=== PATIENT | female | born 1965 | race Caucasian/White ===

== ENCOUNTER 2017-07-05 13:16 | Inpatient (IN) | payer OTHER ==
[2017-07-05 17:11] VITALS: BMI 20.9
--- NOTE | 2017-07-05 18:46 | HP ---
COWS - Scale Resting Pulse: 0= [place] 80 or Below Sweatin= Chills/Flushing Restless Observation: 3= Extraneous Movement Pupil Size: 0= Normal to Room Light Bone or Joint Aches: 2= Severe Diffuse Aches Runny Nose/ Eye Tearin= Runny Nose/Eyes GI Upset > 30mins: 2= Nausea/Diarrhea Tremor Observation: 2= Slight Tremor Visible Yawning Observation: 1= 1-2x During Session Anxiety or Irritability: 2=Irritable/Anxious Goose Flesh Skin: 0=Smooth Skin COWS Score: 15 CIWA Score - CIWA Score Nausea/Vomitin-Mild Nausea/No Vomiting Muscle Tremors: 4-Moderate,w/Arms Extend Anxiety: 4-Mod. Anxious/Guarded Agitation: 4-Moderately Restless Paroxysmal Sweats: 1-Minimal Palms Moist Orientation: 0-Oriented Tacttile Disturbances: 1-Very Mild Itch/Numbness Auditory Disturbances: 0-None Visual Disturbances: 0-None Headache: 1-Very Mild CIWA-Ar Total Score: 16 Admission [facility] - HPI Chief Complaint: withdrawal sx Allergies/Adverse Reactions: Allergies Allergy/AdvReac Type Severity Reaction Status Date / Time No Known Allergies Allergy Verified 07/05/17 17:19 History of Present Illness: 51 years old female with long history of alcohol heroin nicotine dependence has copd asthma hiv ambulate with cane neuropathy both legs has bipolar ii is admitted to detox Exam Limitations: No Limitations - Ebola screening Have you traveled outside of the country in the last 21 days: No Have you had contact with anyone from an Ebola affected area: No Have you been sick,other than usual withdrawal symptoms: No Do you have a fever: No - Review of Systems Constitutional: Loss of Appetite, Changes in sleep, Unintentional Wgt. Loss, Unexplained wgt Loss EENT: reports: Hearing Loss (right ear x 3 years) Respiratory: reports: No Symptoms reported Cardiac: reports: No Symptoms Reported GI: reports: Diarrhea, Nausea, Poor Appetite, Poor Fluid Intake, Vomiting, Abdominal cramping : reports: No Symptoms Reported Musculoskeletal: reports: Back Pain, Joint Pain, Muscle Pain, Neck Pain Integumentary: reports: Change in Color (both arms iv heroin) Neuro: reports: Tremors Endocrine: reports: No Symptoms Reported Hematology: reports: No Symptoms Reported Psychiatric: reports: Judgement Intact, Orientated x3, Anxious, Depressed Other Systems: Reviewed and Negative Patient History - Patient Medical History Hx Anemia: No Hx Asthma: Yes Hx Chronic Obstructive Pulmonary Disease (COPD): Yes Hx Cancer: No Hx Cardiac Disorders: No Hx Congestive Heart Failure: No Hx Hypertension: No Hx Hypercholesterolemia: No Hx Pacemaker: No HX Cerebrovascular Accident: No Hx Seizures: No Hx Dementia: No Hx Diabetes: No Hx Gastrointestinal Disorders: No Hx Liver Disease: No Hx Genitourinary Disorders: No Hx Sexually Transmitted Disorders: No Hx Renal Disease (ESRD): No Hx Thyroid Disease: No Hx Human Immunodeficiency Virus (HIV): Yes (1999) Hx Hepatitis C: No Hx Depression: No Hx Suicide Attempt: No Hx Bipolar Disorder: Yes Hx Schizophrenia: No - Patient Surgical History Past Surgical History: Yes Hx Neurologic Surgery: No Hx Cataract Extraction: No Hx Cardiac Surgery: No Hx Lung Surgery: No Hx Breast Surgery: No Hx Breast Biopsy: No Hx Abdominal Surgery: No Hx Appendectomy: No Hx Cholecystectomy: No Hx Genitourinary Surgery: No Hx Section: Yes (x 2 ) Hx Orthopedic Surgery: No Anesthesia Reaction: No - PPD History Previous Implant?: Yes Documented Results: Negative w/o proof Implanted On Prior R Admission?: No PPD to be Administered?: Yes - Reproductive History Patient is a Female of Child Bearing Age (11 -55 yrs old): Yes Last Menstrual Period: 05/20/16 Patient : No - Smoking Cessation Smoking history: Current every day smoker Have you smoked in the past 12 months: Yes Aproximately how many cigarettes per day: 20 Cigars Per Day: 0 Hx Chewing Tobacco Use: No Initiated information on smoking cessation: Yes 'Breaking Loose' booklet given: 07/05/17 - Substance & Tx. History Hx Alcohol Use: Yes Hx Substance Use: Yes Substance Use Type: Alcohol, Cocaine, Opiates Hx Substance Use Treatment: Yes (2015) - Substances Abused Alcohol Route: Oral Frequency: Daily Amount used: liquor- 1 pint, beer- 2 six packs 16 oz Age of first use: 16 Date of Last Use: 07/05/17 Heroin Route: Injection Frequency: Daily Amount used: 10 bags Age of first use: 16 Date of Last Use: 07/05/17 Family Disease History - Family Disease History Family Disease History: Diabetes: Brother, Heart Disease: Brother, CA: Mother ( /brain), Other: Mother, Sister (no sister) Admission Physical Exam [facility] - Vital Signs Vital Signs: Vital Signs - 24 hr 07/05/17 17:04 Temperature 96.6 F L Pulse Rate 69 Respiratory 20 Rate Blood Pressure 125/80 - Physical General Appearance: Yes: Appropriately Dressed, Mild Distress, Thin, Tremorous, Irritable, Sweating, Anxious HEENTM: Yes: Hearing grossly Normal, Normal ENT Inspection, Normocephalic, Normal Voice Respiratory: Yes: Chest Non-Tender, No Respiratory Distress, No Accessory Muscle Use, Wheezing Neck: Yes: Supple, Trachea in good position Breast: Yes: Breasts Symetrical Cardiology: Yes: Regular Rhythm, Regular Rate, S1, S2 Abdominal: Yes: Non Tender, Soft, Increased Bowel Sounds Genitourinary: Yes: Within Normal Limits Back: Yes: Normal Inspection Musculoskeletal: Yes: full range of Motion, Gait Steady, Back pain, Muscle weakness (both legs) Extremities: Yes: Normal Range of Motion, Non-Tender, Tremors Neurological: Yes: Fully Oriented, Alert, Normal Response, Depressed Affect Integumentary: Yes: Warm, Track [place] Lymphatic: Yes: Within Normal Limits - Diagnostic (1) Alcohol dependence with uncomplicated withdrawal Current Visit: Yes Status: Acute (2) Opioid dependence with withdrawal Current Visit: Yes Status: Acute (3) Asthma Current Visit: Yes Status: Chronic Qualifiers: Asthma severity: mild Asthma persistence: intermittent Asthma complication type: with status asthmaticus Qualified Code(s): J45.22 - Mild intermittent asthma with status asthmaticus (4) COPD (chronic obstructive pulmonary disease) Current Visit: Yes Status: Chronic Qualifiers: COPD type: emphysema Emphysema type: unspecified Qualified Code(s): J43.9 - Emphysema, unspecified (5) Nicotine dependence Current Visit: Yes Status: Acute Qualifiers: Nicotine product type: cigarettes Substance use status: in withdrawal Qualified Code(s): F17.213 - Nicotine dependence, cigarettes, with withdrawal (6) HIV (human immunodeficiency virus infection) Current Visit: Yes Status: Chronic Comment: no medication upon admission (7) Neuropathic arthritis Current Visit: Yes Status: Chronic (8) Use of cane as ambulatory aid Current Visit: Yes Status: Chronic (9) Weight loss Current Visit: Yes Status: Acute (10) Bipolar II disorder Current Visit: Yes Status: Suspected Cleared for Admission [facility] - Detox or Rehab [facility] Level of Care: Medically Managed Detox Regimen/Protocol: Methadone/Librium [facility] Breath Alcohol Content Breath Alcohol Content: 0 Urine Pregancy Test - Result Urine Test Results: Negative- NO Line Present Urine Drug Screen - Results Drug Screen Negative: No Urine Drug Screen Results: GUEVARA-Cocaine, OPI-Opiates, MTD-Methadone, TCA- Tricyclic Antidepress
[2017-07-05] MEDS ORDERED: LOPERAMIDE HCL 2 MG CAPSULE PO PRN (18:48)
[2017-07-05] MEDS ORDERED: NICOTINE POLACRILEX 4 MG GUM BUC PRN (18:48)
[2017-07-05] MEDS ORDERED: METHADONE HCL 10 MG TABLET (FOR DETOX USE ONLY) PO ONE ×2 (18:48→23:00)
[2017-07-05] MEDS ORDERED: MAGNESIUM HYDROX 2400MG/30ML ORAL SUSPENSION 30 ML CUP PO PRN (18:48)
[2017-07-05] MEDS ORDERED: ACETAMINOPHEN 325 MG TABLET (FP) PO PRN (18:48)
[2017-07-05] MEDS ORDERED: IBUPROFEN 400 MG TABLET (FP) PO PRN (18:48)
[2017-07-05] MEDS ORDERED: P-EPHED 60MG/TRIPROLIDI 2.5MG TABLET PO PRN (18:48)
[2017-07-05] MEDS ORDERED: MAG HYDROX/AL HYDROX/SIMETH 30 ML UNIT-DOSE CUP PO PRN (18:48)
[2017-07-05] MEDS ORDERED: guaiFENesin/D-METHORPHAN HB 10 ML UNIT-DOSE CUPS PO PRN (18:48)
[2017-07-05] MEDS ORDERED: MAGNESIUM CITRATE 300 ML BOTTLE PO PRN (18:48)
[2017-07-05] MEDS ORDERED: MENTHOL/PHENOL 1 EACH UD MM PRN (18:48)
[2017-07-05] MEDS ORDERED: ALBUTEROL SO4 18 GM HFA INHALER IH PRN (18:50)
[2017-07-05] MEDS ORDERED: METHOCARBAMOL 500 MG TABLET PO PRN (18:50)
[2017-07-05] MEDS ORDERED: BACITRACIN 0.9 GM PACKET TP ONE (18:53)
[2017-07-05] MEDS ORDERED: METHADONE HCL 10 MG TABLET (FOR DETOX USE ONLY) ONE (21:08)
[2017-07-05] MEDS: GABAPENTIN 300 MG CAPSULE (FP) PO SCH (21:12)
[2017-07-05] MEDS: chlordiazePOXIDE HCL 25 MG CAPSULE PO PRN (21:12)
[2017-07-05] MEDS: THIAMINE HCL 100 MG TABLET (FP) PO SCH (21:16)
[2017-07-05] MEDS: chlordiazePOXIDE HCL 25 MG CAPSULE PO SCH (22:46)
[2017-07-05] MEDS ORDERED: BACITRACIN 0.9 GM PACKET ONE (22:51)
[2017-07-05 23:29] LABS: URINE APPEARANCE CLEAR; URINE BILIRUBIN NEGATIVE (NEGATIVE); URINE BLOOD 2+ (NEGATIVE); URINE COLOR YELLOW; URINE GLUCOSE (UA) NEGATIVE (NEGATIVE); URINE KETONE NEGATIVE (NEGATIVE); URINE LEUK ESTERASE NEGATIVE (NEGATIVE); URINE NITRITE NEGATIVE (NEGATIVE); URINE PROTEIN NEGATIVE (NEGATIVE); URINE UROBILINOGEN NEGATIVE mg/dL (0.2-1.0)
[2017-07-05 23:41] LABS: EPI CELLS FEW /HPF (FEW); URINE MUCUS RARE
[2017-07-06] MEDS: chlordiazePOXIDE HCL 25 MG CAPSULE PO PRN ×2 (01:33→10:59)
[2017-07-06] MEDS: GABAPENTIN 300 MG CAPSULE (FP) PO SCH ×3 (05:44→22:54)
[2017-07-06] MEDS: chlordiazePOXIDE HCL 25 MG CAPSULE PO SCH ×4 (05:44→23:44)
[2017-07-06] MEDS ORDERED: METHADONE HCL 10 MG TABLET (FOR DETOX USE ONLY) PO SCH (10:00)
[2017-07-06] MEDS ORDERED: ATAZANAVIR SO4 300 MG CAPSULE PO SCH (10:00)
[2017-07-06 10:15] LABS: HEMATOCRIT 33.8 % (32.4-45.2); HEMOGLOBIN 11.1 GM/dL (10.7-15.3); MCH 32.4 pg (25.7-33.7); MCHC 32.8 g/dl (32.0-36.0); MEAN CELL VOLUME 98.7 fl (80-96); MEAN PLT VOLUME 8.5 fl (7.5-11.1); PLATELET COUNT 226 K/MM3 (134-434); RBC 3.42 M/mm3 (3.60-5.2); RDW 13.2 % (11.6-15.6); WHITE BLOOD COUNT 3.4 K/mm3 (4.0-10.0)
[2017-07-06 10:32] LABS: ALBUMIN 2.4 g/dl (3.4-5.0); ALK PHOS 286 U/L (45-117); ANION GAP 5 (8-16); BILIRUBIN,TOTAL 0.2 mg/dL (0.2-1.0); BLOOD UREA NITROGEN 12 mg/dL (7-18); CALCIUM 8.3 mg/dL (8.5-10.1); CHLORIDE 103 mmol/L (98-107); CO2 29 mmol/L (21-32); CREATININE 0.8 mg/dL (0.55-1.02); GLUCOSE,RANDOM 83 mg/dL (74-106); POTASSIUM 4.1 mmol/L (3.5-5.1); SGOT/AST 30 U/L (15-37); SGPT/ALT 29 U/L (12-78); SODIUM 137 mmol/L (136-145); TOT PROT 8.8 g/dl (6.4-8.2)
--- NOTE | 2017-07-06 10:45 | EKG ---
Test Reason : Blood Pressure : / mmHG Vent. Rate : 057 BPM Atrial Rate : 057 BPM P-R Int : 136 ms QRS Dur : 090 ms QT Int : 460 ms P-R-T Axes : 073 083 073 degrees QTc Int : 447 ms SINUS BRADYCARDIA OTHERWISE NORMAL ECG NO PREVIOUS ECGS AVAILABLE Confirmed by MEGAN CONROY, JEREMY ([id number]) on 07/06/2017 10:44:57 AM Referred By: Confirmed By:JEREMY GUZMAN MD
[2017-07-06] MEDS: PRENATAL VITAMINS W/ FOLIC ACID TABLET (FP) PO SCH (10:56)
[2017-07-06] MEDS: NICOTINE 21 MG/24 HOURS TOPICAL PATCH TD SCH (10:57)
--- NOTE | 2017-07-06 11:51 | PN ---
S CIWA - CIWA Score Nausea/Vomitin Muscle Tremors: 3 Anxiety: 2 Agitation: 2 Paroxysmal Sweats: 3 Orientation: 0-Oriented Tacttile Disturbances: 2-Mild Itch/Numbness/Burn Auditory Disturbances: 0-None Visual Disturbances: 0-None Headache: 0-None Present CIWA-Ar Total Score: 15 [facility] COWS - Scale Resting Pulse: 1= [place] 81-100 Sweatin=Flushed/Facial Moisture Restless Observation: 1= Difficult to Sit Still Pupil Size: 1= Pupils >than Normal Bone or Joint Aches: 2= Severe Diffuse Aches Runny Nose/ Eye Tearin= Nasal Congestion GI Upset > 30mins: 2= Nausea/Diarrhea Tremor Observation of Outstretched Hands: 2= Slight Tremor Visible Yawning Observation: 0= None Anxiety or Irritability: 1=Feels Anxious/Irritable Goose Flesh Skin: 0=Smooth Skin COWS Score: 13 [facility] Progress Note (SOAP) Subjective: interrupted sleep, sweats, shakes , nausea, body aches and cramps. Objective: 07/06/17 11:41 Vital Signs Temperature 97.5 F L 07/06/17 04:00 Pulse Rate 61 07/06/17 04:00 Respiratory Rate 18 07/06/17 04:00 Blood Pressure 108/66 07/06/17 04:00 O2 Sat by Pulse Oximetry (%) Laboratory Tests 07/05/17 07/06/17 07/06/17 19:42 07:00 07:00 WBC 3.4 L RBC 3.42 L Hgb 11.1 Hct 33.8 MCV 98.7 H MCH 32.4 MCHC 32.8 RDW 13.2 Plt Count 226 MPV 8.5 Sodium 137 Potassium 4.1 Chloride 103 Carbon Dioxide 29 Anion Gap 5 L BUN 12 Creatinine 0.8 Creat Clearance w eGFR > 60 Random Glucose 83 Calcium 8.3 L Total Bilirubin 0.2 AST 30 ALT 29 Alkaline Phosphatase 286 H Total Protein 8.8 H Albumin 2.4 L Urine Color Yellow Urine Appearance Clear Urine pH 5.0 Ur Specific [place] 1.017 Urine Protein Negative Urine Glucose (UA) Negative Urine Ketones Negative Urine Blood 2+ H Urine Nitrite Negative Urine Bilirubin Negative Urine Urobilinogen Negative Ur Leukocyte Esterase Negative Urine WBC (Auto) 2 Urine RBC (Auto) 20 Ur Epithelial Cells Few Urine Mucus Rare pt aox3 in nad ambulating Assessment: 07/06/17 11:42 withdrawal sx's hiv mild anemia ? hematuria Plan: cont. detox increase fluids flexeril tid motrin prn
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
[2017-07-06] MEDS: CYCLOBENZAPRINE HCL 5 MG TABLET PO SCH ×2 (14:12→22:54)
[2017-07-06] MEDS ORDERED: ONDANSETRON *ODT* 4 MG TABLET SL ONE (19:03)
--- NOTE | 2017-07-06 20:47 | PN ---
[facility] Progress Note Note: received nurse call that the patient is vomiting and has abdominal pain observed patient sitting on her bed alert oriented x 3 speech clearly "I want a shot for the pain" reports has normal bowel movement early today, had breakfast and lunch and dinner, vomited x 1 undigested food, zofrain sl 4 mg x 1, progress to projectile vomiting diffused abdominal pain, diaphoretic, unable to tolerate fluid bp 141/98 ambulance was called information provided to ER
[2017-07-06] MEDS ORDERED: traZODone HCL 50 MG TABLET (FP) PO SCH (22:00)
[2017-07-06 22:39] VITALS: BP 153/108; PULSE 73; TEMP 98.2
[2017-07-06] MEDS: THIAMINE HCL 100 MG TABLET (FP) PO SCH (22:54)
[2017-07-06] MEDS: RANITIDINE HCL 150 MG TABLET (FP) PO SCH (23:58)
[2017-07-07] MEDS ORDERED: METHADONE HCL 5 MG TABLET (FOR DETOX USE ONLY) PO SCH (10:00)
[2017-07-07] MEDS: RANITIDINE HCL 150 MG TABLET (FP) PO SCH (13:20)
[2017-07-07] MEDS: NICOTINE 21 MG/24 HOURS TOPICAL PATCH TD SCH (13:20)
[2017-07-07] MEDS: PRENATAL VITAMINS W/ FOLIC ACID TABLET (FP) PO SCH (13:20)
[2017-07-07] MEDS: chlordiazePOXIDE HCL 25 MG CAPSULE PO SCH (13:20)
[2017-07-07] MEDS ORDERED: chlordiazePOXIDE 5 MG CAPSULE PO SCH (23:00)
[2017-07-08] MEDS ORDERED: chlordiazePOXIDE HCL 10 MG CAPSULE PO SCH (23:00)
[2017-07-09] MEDS ORDERED: METHADONE HCL 10 MG TABLET (FOR DETOX USE ONLY) PO SCH (10:00)
[2017-07-10] MEDS ORDERED: METHADONE HCL 5 MG TABLET (FOR DETOX USE ONLY) PO SCH (06:00)
== END 2017-07-07 14:44 | disposition short-term general hospital (02) | DRG 773 ==
LOC: YASAS 13:16 → Y6N 17:13
PROVIDERS: ADMIT Internal Medicine; ATTEND Internal Medicine
PROC: HZ2ZZZZ Detoxification Services for Substance Abuse Treatment (ICD-10-PCS; principal; 2017-07-05)
DX: F11.23 Opioid dependence with withdrawal (principal); F10.230 Alcohol dependence with withdrawal, uncomplicated; F17.210 Nicotine dependence, cigarettes, uncomplicated; F31.81 Bipolar II disorder; D64.9 Anemia, unspecified; G47.00 Insomnia, unspecified; R10.9 Unspecified abdominal pain; R11.10 Vomiting, unspecified; R31.9 Hematuria, unspecified; R26.2 Difficulty in walking, not elsewhere classified; Z99.89 Dependence on other enabling machines and devices; Z87.898 Personal history of other specified conditions; M07.69 Enteropathic arthropathies, multiple sites
CPT/HCPCS: 36415; 80053; 81003; 81015; 85027; 86593; 93005; 93010

== ENCOUNTER 2017-07-06 21:39 | Inpatient (IN) | payer OTHER ==
[2017-07-06 22:15] VITALS: BMI 21.2
--- NOTE | 2017-07-06 22:41 | PDOC ---
History of Present Illness - General History Source: Patient, Old Records Exam Limitations: No Limitations - History of Present Illness Initial Comments: 07/07/17 00:29 The patient is a 51-year-old female, with a long history of alcohol, heroin, cocaine, and nicotine dependence, HIV, bipolar, COPD, asthma, and neuropathy in the extremities bilaterally, who presents to the ED with abdominal pain. The patient was admitted upstairs earlier today. She had went to [address] [place] [address] for alcohol, cocaine, and heroin withdrawal. She reports doing 10 bags of heroin a day and also snorts cocaine. The patient had 2 episodes of vomiting, nonbloody, nonbilious. She was sent to the ED for evaluation for her abdominal pain. She denies any fever or chills. She denies any diarrhea. She denies any urinary symptoms. Social Hx: Alcohol, cocaine, heroine, and tobacco use. <Celi Eastman - Last Filed: 07/07/17 00:54> <Kathy Mesa - Last Filed: 07/07/17 01:53> <Lindy Cortez - Last Filed: 07/07/17 05:24> - General Chief Complaint: Nausea/Vomiting Stated Complaint: ABD PAIN/NAUSEA/VOMITING Time Seen by Provider: 07/06/17 21:47 Past History <Celi Eastman - Last Filed: 07/07/17 00:54> - Past Medical History Anemia: No Asthma: Yes Cancer: No Cardiac Disorders: No CVA: No COPD: Yes CHF: No Dementia: No Diabetes: No GI Disorders: No Disorders: No HTN: No Hypercholesterolemia: No Kidney Stones: No Liver Disease: No Seizures: No Thyroid Disease: No - Surgical History Abdominal Surgery: No Appendectomy: No Cardiac Surgery: No Cholecystectomy: No Lung Surgery: No Neurologic Surgery: No Orthopedic Surgery: No - Suicide/Smoking/Psychosocial Hx Smoking History: Unknown if ever smoked Have you smoked in the past 12 months: No Number of Cigarettes Smoked Daily: 20 Cigars Per Day: 0 'Breaking Loose' booklet given: 07/05/17 Hx Alcohol Use: Yes Drug/Substance Use Hx: Yes (heroin/cocaine) Substance Use Type: Alcohol, Cocaine, Opiates Hx Substance Use Treatment: Yes (2015) <Kathy Mesa - Last Filed: 07/07/17 01:53> <Lindy Cortez - Last Filed: 07/07/17 05:24> - Past Medical History Allergies/Adverse Reactions: Allergies Allergy/AdvReac Type Severity Reaction Status Date / Time No Known Allergies Allergy Verified 07/06/17 22:12 Home Medications: Ambulatory Orders Albuterol Sulfate Inhaler - [Ventolin Hfa Inhaler -] 2 inh PO TID 07/05/17 Atazanavir [Reyataz -] 300 mg PO DAILY 07/05/17 Gabapentin [Neurontin -] 300 mg PO TID 07/05/17 Quetiapine Fumarate [Seroquel -] 200 mg PO DAILY 07/05/17 Trazodone HCl [Desyrel -] 100 mg PO HS 07/05/17 Review of Systems - Review of Systems Able to Perform ROS?: Yes Comments:: 07/07/17 00:30 GENERAL/CONSTITUTIONAL: No fever or chills. No weakness. HEAD, EYES, EARS, NOSE AND THROAT: No change in vision. No ear pain or discharge. No sore throat. CARDIOVASCULAR: No chest pain or shortness of breath. RESPIRATORY: No cough, wheezing, or hemoptysis. SKIN: No rash GASTROINTESTINAL: (+)nausea, vomiting, abdominal pain. No diarrhea or constipation. GENITOURINARY: No dysuria, frequency, or change in urination. MUSCULOSKELETAL: No joint or muscle swelling or pain. No neck or back pain. NEUROLOGIC: No headache, vertigo, loss of consciousness, or change in strength/ sensation. ENDOCRINE: No increased thirst. No abnormal weight change. HEMATOLOGIC/LYMPHATIC: No anemia, easy bleeding, or history of blood clots. ALLERGIC/IMMUNOLOGIC: No hives or skin allergy. <Celi Eastman - Last Filed: 07/07/17 00:54> *Physical Exam - Vital Signs Last Vital Signs Temp Pulse Resp BP Pulse Ox 98.0 F 63 18 136/93 100 07/06/17 21:39 07/06/17 21:39 07/06/17 21:39 07/06/17 21:39 07/06/17 21:39 - Physical Exam Comments: 07/07/17 00:30 GENERAL: Awake, alert, and fully oriented, in no acute distress HEAD: No signs of trauma ENT: (+)Poor dentition. Auricles normal inspection, hearing grossly normal, nares patent, oropharynx clear EYES: PERRLA, EOMI, sclera anicteric, conjunctiva clear without exudates. Moist mucosa. NECK: Normal ROM, supple, no lymphadenopathy, JVD, or masses LUNGS: Breath sounds equal, clear to auscultation bilaterally. No wheezes, and no crackles HEART: Regular rate and rhythm, normal S1 and S2, no murmurs, rubs or gallops ABDOMEN: (+)Diffuse abdominal tenderness. Soft, normoactive bowel sounds. No guarding, no rebound. No masses EXTREMITIES: (+)Drag juarez on arms bilaterally. Normal range of motion, no edema. No clubbing or cyanosis. No cords. NEUROLOGICAL: Cranial nerves II through XII grossly intact. Normal speech, normal gait SKIN: Warm, Dry, normal turgor, no rashes or lesions noted. No cellulitis or abscesses. <Celi Eastman - Last Filed: 07/07/17 00:54> - Vital Signs Last Vital Signs Temp Pulse Resp BP Pulse Ox 98.0 F 63 18 136/93 100 07/06/17 21:39 07/06/17 21:39 07/06/17 21:39 07/06/17 21:39 07/06/17 21:39 <Kathy Mesa - Last Filed: 07/07/17 01:53> - Vital Signs Last Vital Signs Temp Pulse Resp BP Pulse Ox 98.0 F 71 18 127/69 100 07/06/17 21:39 07/07/17 02:25 07/07/17 02:25 07/07/17 02:25 07/07/17 02:25 <Lindy Cortez - Last Filed: 07/07/17 05:24> ED Treatment Course - LABORATORY CBC & Chemistry Diagram: 07/06/17 22:57 07/06/17 22:57 - ADDITIONAL ORDERS Additional order review: Laboratory Results 07/06/17 07/06/17 22:57 22:57 Sodium Cancelled Potassium Cancelled Chloride Cancelled Carbon Dioxide Cancelled Anion Gap Cancelled BUN Cancelled Creatinine Cancelled Creat Clearance w eGFR Cancelled Random Glucose Cancelled Lactic Acid 1.5 Calcium Cancelled Magnesium Cancelled Total Bilirubin Cancelled AST Cancelled ALT Cancelled Alkaline Phosphatase Cancelled Total Protein Cancelled Albumin Cancelled Lipase Cancelled 07/06/17 22:57 RBC 3.67 MCV 98.1 H MCHC 33.4 RDW 13.5 MPV 9.1 Neutrophils % 74.4 Lymphocytes % 17.2 Monocytes % 8.1 Eosinophils % 0.1 Basophils % 0.2 - Medications Given in the ED: ED Medications Discontinued Medications Generic Name Dose Route Start Last Admin Trade Name Be PRN Reason Stop Dose Admin Dicyclomine HCl 20 mg 07/06/17 22:42 07/07/17 00:36 Bentyl Injection - IM 07/06/17 22:43 20 mg ONCE ONE Administration Famotidine/Sodium Chloride 20 mg in 50 mls @ 100 mls/hr 07/06/17 22:45 23:38 Pepcid 20 Mg Premixed Ivpb - IVPB 07/06/17 23:14 100 mls/hr ONCE ONE Administration Lorazepam 1 mg 07/06/17 22:44 07/06/17 23:45 Ativan Injection - IVPUSH 07/06/17 22:45 1 mg ONCE ONE Administration Ondansetron HCl 4 mg 07/06/17 22:42 07/06/17 23:37 Zofran Injection IVPUSH 07/06/17 22:43 4 mg ONCE ONE Administration Sodium Chloride 1,000 ml 07/06/17 22:42 07/06/17 23:45 Normal Saline - IV 07/06/17 22:43 1,000 ml ONCE ONE Administration <Celi Eastman - Last Filed: 07/07/17 00:54> - LABORATORY CBC & Chemistry Diagram: 07/06/17 22:57 07/07/17 01:05 - RADIOLOGY Radiology Studies Ordered: Category Date Time Status CHEST X-RAY PORTABLE* [RAD] Stat Radiology 07/06/17 22:01 Ordered <Kathy Mesa - Last Filed: 07/07/17 01:53> - LABORATORY CBC & Chemistry Diagram: 07/06/17 22:57 07/07/17 01:05 - ADDITIONAL ORDERS Additional order review: Laboratory Results 07/07/17 07/07/17 07/06/17 01:05 01:05 22:57 Sodium 132 L Potassium 4.2 Chloride 98 Carbon Dioxide 27 Anion Gap 7 L BUN 10 Creatinine 0.7 Creat Clearance w eGFR > 60 Random Glucose 112 H Lactic Acid 1.5 Calcium 8.2 L Magnesium 1.4 L Total Bilirubin 0.3 D AST 29 ALT 29 Alkaline Phosphatase 272 H Total Protein 9.6 H Albumin 2.6 L Lipase 56 L 07/06/17 22:57 Sodium Cancelled Potassium Cancelled Chloride Cancelled Carbon Dioxide Cancelled Anion Gap Cancelled BUN Cancelled Creatinine Cancelled Creat Clearance w eGFR Cancelled Random Glucose Cancelled Lactic Acid Calcium Cancelled Magnesium Cancelled Total Bilirubin Cancelled AST Cancelled ALT Cancelled Alkaline Phosphatase Cancelled Total Protein Cancelled Albumin Cancelled Lipase Cancelled 07/06/17 22:57 RBC 3.67 MCV 98.1 H MCHC 33.4 RDW 13.5 MPV 9.1 Neutrophils % 74.4 Lymphocytes % 17.2 Monocytes % 8.1 Eosinophils % 0.1 Basophils % 0.2 - RADIOLOGY Radiograph Interpretation: EXAM: CT HEAD without contrast HISTORY: Rule out bleed status post fall COMPARISON: None. FINDINGS: The ventricular system is midline and nondilated. The sulcal pattern is normal for the patient's age. There is no bleed, mass, extra-axial fluid collection or mass effect. No skull fracture or skull lesion is identified. The visualized paranasal sinuses and mastoid air cells are clear. IMPRESSION: No evidence of acute pathology. Juan Ramon Sol MD 07/07/2017 04:05 EST - Medications Given in the ED: ED Medications Discontinued Medications Generic Name Dose Route Start Last Admin Trade Name Freq PRN Reason Stop Dose Admin Dicyclomine HCl 20 mg 07/06/17 22:42 07/07/17 00:36 Bentyl Injection - IM 07/06/17 22:43 20 mg ONCE ONE Administration Folic Acid 1 mg 07/07/17 00:28 07/07/17 01:08 Folic Acid - PO 07/07/17 00:29 1 mg ONCE ONE Administration Famotidine/Sodium Chloride 20 mg in 50 mls @ 100 mls/hr 07/06/17 22:45 23:38 Pepcid 20 Mg Premixed Ivpb - IVPB 07/06/17 23:14 100 mls/hr ONCE ONE Administration Lorazepam 1 mg 07/06/17 22:44 07/06/17 23:45 Ativan Injection - IVPUSH 07/06/17 22:45 1 mg ONCE ONE Administration Lorazepam 1 mg 07/07/17 01:44 07/07/17 02:12 Ativan Injection - IVPUSH 07/07/17 01:45 1 mg ONCE ONE Administration Magnesium Sulfate 2 gm 07/07/17 01:51 07/07/17 02:30 Magnesium Sulfate IVPB 07/07/17 01:52 2 gm ONCE ONE Administration Multivitamins/Minerals/Vitamin C 1 tab 07/07/17 00:28 07/07/17 01:08 Tab-A-Vit - PO 07/07/17 00:29 1 tab ONCE ONE Administration Ondansetron HCl 4 mg 07/06/17 22:42 07/06/17 23:37 Zofran Injection IVPUSH 07/06/17 22:43 4 mg ONCE ONE Administration Ondansetron HCl 4 mg 07/07/17 01:44 07/07/17 02:13 Zofran Injection IVPUSH 07/07/17 01:45 4 mg ONCE ONE Administration Sodium Chloride 1,000 ml 07/06/17 22:42 07/06/17 23:45 Normal Saline - IV 07/06/17 22:43 1,000 ml ONCE ONE Administration Sodium Chloride 1,000 ml 07/07/17 01:44 07/07/17 02:12 Normal Saline - IV 07/07/17 01:45 1,000 ml ONCE ONE Administration Thiamine HCl 100 mg 07/07/17 00:28 07/07/17 01:08 Vitamin B1 - PO 07/07/17 00:29 100 mg ONCE ONE Administration <Lindy Cortez - Last Filed: 07/07/17 05:24> Medical Decision Making - Medical Decision Making 07/06/17 22:42 a/p: 51yo female with abd pain, n/v/d -suspect secondayr to withdrawal from cocaine, heroin, etoh -will check labs -utox -etoh -mildly tremulous -will add ativan -ucg -cxr -nausea and pain control -ivf hydration -r/o acute pancreatitis vs gastroenteritis vs withdrawal 07/07/17 01:53 labs reviewed still with n/v will remedicate and reassess 07/07/17 01:53 pt will be signed out to the oncoming ed physician pending re-eval for abd pain n/v <Kathy Mesa - Last Filed: 07/07/17 01:53> *DC/Admit/Observation/Transfer - Attestations Scribe Attestion: 07/07/17 00:55 Documentation prepared by Celi Eastman, acting as chief medical physicist for Kathy Mesa DO. <Celi Eastman - Last Filed: 07/07/17 00:54> - Attestations Physician Attestion: 07/07/17 00:34 I, Dr. Kathy Mesa DO, attest that this document has been prepared under my direction and personally reviewed by me in its entirety. I further attest, that it accurately reflects all work, treatment, procedures and medical decision -making performed by me. <Kathy Mesa - Last Filed: 07/07/17 01:53> <Lindy Cortez - Last Filed: 07/07/17 05:24> Diagnosis at time of Disposition: Opioid dependence with withdrawal, Alcohol abuse, Nausea and vomiting
[2017-07-06] MEDS ORDERED: ONDANSETRON 4 MG/2 ML VIAL IVPUSH ONE (22:42)
[2017-07-06] MEDS ORDERED: DICYCLOMINE HCL 20 MG/2 ML AMPUL IM ONE (22:42)
[2017-07-06] MEDS ORDERED: SODIUM CHLORIDE 0.9% 1000 ML INFUS.BAG IV ONE (22:42)
[2017-07-06] MEDS ORDERED: FAMOTIDINE 20 MG/50 ML IVPB 20 MG/50 ML MG IVPB ONE ×2 (22:45→23:15)
[2017-07-06] MEDS ORDERED: ONDANSETRON 4 MG/2 ML VIAL ONE (23:14)
[2017-07-06 23:31] LABS: BASO % 0.2 % (0-2.0); EOS % 0.1 % (0-4.5); LYMPH % 17.2 % (8-40); MCH 32.8 pg (25.7-33.7); MCHC 33.4 g/dl (32.0-36.0); MEAN CELL VOLUME 98.1 fl (80-96); MEAN PLT VOLUME 9.1 fl (7.5-11.1); MONO % 8.1 % (3.8-10.2); NEUT % 74.4 % (42.8-82.8); PLATELET COUNT 245 K/MM3 (134-434); RBC 3.67 M/mm3 (3.60-5.2); RDW 13.5 % (11.6-15.6); WHITE BLOOD COUNT 5.4 K/mm3 (4.0-10.0)
[2017-07-07] MEDS ORDERED: MULTIVITAMINS (DAILY MVI) TABLET (FP) PO ONE (00:28)
[2017-07-07] MEDS ORDERED: THIAMINE HCL 100 MG TABLET (FP) PO ONE (00:28)
[2017-07-07] MEDS ORDERED: FOLIC ACID 1 MG TABLET (FP) PO ONE (00:28)
[2017-07-07] MEDS ORDERED: FOLIC ACID 1 MG TABLET (FP) ONE (01:05)
[2017-07-07 01:43] LABS: MAGNESIUM 1.4 mg/dL (1.8-2.4)
[2017-07-07] MEDS ORDERED: SODIUM CHLORIDE 0.9% 1000 ML INFUS.BAG IV ONE (01:44)
[2017-07-07] MEDS ORDERED: ONDANSETRON 4 MG/2 ML VIAL IVPUSH ONE (01:44)
[2017-07-07 01:48] LABS: ALBUMIN 2.6 g/dl (3.4-5.0); ALK PHOS 272 U/L (45-117); ANION GAP 7 (8-16); BILIRUBIN,TOTAL 0.3 mg/dL (0.2-1.0); BLOOD UREA NITROGEN 10 mg/dL (7-18); CALCIUM 8.2 mg/dL (8.5-10.1); CHLORIDE 98 mmol/L (98-107); CO2 27 mmol/L (21-32); CREATININE 0.7 mg/dL (0.55-1.02); GLUCOSE,RANDOM 112 mg/dL (74-106); POTASSIUM 4.2 mmol/L (3.5-5.1); SGOT/AST 29 U/L (15-37); SGPT/ALT 29 U/L (12-78); SODIUM 132 mmol/L (136-145); TOT PROT 9.6 g/dl (6.4-8.2)
[2017-07-07] MEDS ORDERED: MAGNESIUM SULF 50% (8.12 MEQ/2 ML-1 GM VIAL) IVPB ONE (01:51)
[2017-07-07] MEDS ORDERED: ONDANSETRON 4 MG/2 ML VIAL ONE (02:04)
[2017-07-07] MEDS ORDERED: LORazepam 2 MG/ML SDV VIAL ONE ×3 (02:04→10:31)
[2017-07-07 08:46] LABS: URINE APPEARANCE CLEAR; URINE BILIRUBIN NEGATIVE (NEGATIVE); URINE BLOOD NEGATIVE (NEGATIVE); URINE COLOR LTYELLOW; URINE GLUCOSE (UA) NEGATIVE (NEGATIVE); URINE KETONE NEGATIVE (NEGATIVE); URINE LEUK ESTERASE NEGATIVE (NEGATIVE); URINE NITRITE NEGATIVE (NEGATIVE); URINE PROTEIN NEGATIVE (NEGATIVE); URINE UROBILINOGEN NEGATIVE mg/dL (0.2-1.0)
--- NOTE | 2017-07-07 12:09 | PDOC ---
*Physical Exam - Vital Signs Last Vital Signs Temp Pulse Resp BP Pulse Ox 98.0 F 72 18 140/88 99 07/06/17 21:39 07/07/17 11:27 07/07/17 11:27 07/07/17 11:27 07/07/17 11:27 ED Treatment Course - LABORATORY CBC & Chemistry Diagram: 07/06/17 22:57 07/07/17 01:05 - ADDITIONAL ORDERS Additional order review: Laboratory Results 07/07/17 07/07/17 07/07/17 08:55 01:05 01:05 Sodium 132 L Potassium 4.2 Chloride 98 Carbon Dioxide 27 Anion Gap 7 L BUN 10 Creatinine 0.7 Creat Clearance w eGFR > 60 Random Glucose 112 H Calcium 8.2 L Magnesium 1.4 L Total Bilirubin 0.3 D AST 29 ALT 29 Alkaline Phosphatase 272 H Total Protein 9.6 H Albumin 2.6 L Lipase 56 L Beta HCG, Quant 1.5 Urine Color Urine Appearance Urine pH Ur Specific [place] Urine Protein Urine Glucose (UA) Urine Ketones Urine Blood Urine Nitrite Urine Bilirubin Urine Urobilinogen Ur Leukocyte Esterase 07/06/17 08:30 Sodium Potassium Chloride Carbon Dioxide Anion Gap BUN Creatinine Creat Clearance w eGFR Random Glucose Calcium Magnesium Total Bilirubin AST ALT Alkaline Phosphatase Total Protein Albumin Lipase Beta HCG, Quant Urine Color Ltyellow Urine Appearance Clear Urine pH 8.0 D Ur Specific [place] 1.014 Urine Protein Negative Urine Glucose (UA) Negative Urine Ketones Negative Urine Blood Negative Urine Nitrite Negative Urine Bilirubin Negative Urine Urobilinogen Negative Ur Leukocyte Esterase Negative 07/06/17 22:57 RBC 3.67 MCV 98.1 H MCHC 33.4 RDW 13.5 MPV 9.1 Neutrophils % 74.4 Lymphocytes % 17.2 Monocytes % 8.1 Eosinophils % 0.1 Basophils % 0.2 - Medications Given in the ED: ED Medications Discontinued Medications Generic Name Dose Route Start Last Admin Trade Name Freq PRN Reason Stop Dose Admin Dicyclomine HCl 20 mg 07/06/17 22:42 07/07/17 00:36 Bentyl Injection - IM 07/06/17 22:43 20 mg ONCE ONE Administration Folic Acid 1 mg 07/07/17 00:28 07/07/17 01:08 Folic Acid - PO 07/07/17 00:29 1 mg ONCE ONE Administration Famotidine/Sodium Chloride 20 mg in 50 mls @ 100 mls/hr 07/06/17 22:45 23:38 Pepcid 20 Mg Premixed Ivpb - IVPB 07/06/17 23:14 100 mls/hr ONCE ONE Administration Lorazepam 1 mg 07/06/17 22:44 07/06/17 23:45 Ativan Injection - IVPUSH 07/06/17 22:45 1 mg ONCE ONE Administration Lorazepam 1 mg 07/07/17 01:44 07/07/17 02:12 Ativan Injection - IVPUSH 07/07/17 01:45 1 mg ONCE ONE Administration Lorazepam 0.5 mg 07/07/17 08:38 07/07/17 09:00 Ativan Injection - IVPUSH 07/07/17 08:39 0.5 mg ONCE ONE Administration Magnesium Sulfate 2 gm 07/07/17 01:51 07/07/17 02:30 Magnesium Sulfate IVPB 07/07/17 01:52 2 gm ONCE ONE Administration Multivitamins/Minerals/Vitamin C 1 tab 07/07/17 00:28 07/07/17 01:08 Tab-A-Vit - PO 07/07/17 00:29 1 tab ONCE ONE Administration Ondansetron HCl 4 mg 07/06/17 22:42 07/06/17 23:37 Zofran Injection IVPUSH 07/06/17 22:43 4 mg ONCE ONE Administration Ondansetron HCl 4 mg 07/07/17 01:44 07/07/17 02:13 Zofran Injection IVPUSH 07/07/17 01:45 4 mg ONCE ONE Administration Sodium Chloride 1,000 ml 07/06/17 22:42 07/06/17 23:45 Normal Saline - IV 07/06/17 22:43 1,000 ml ONCE ONE Administration Sodium Chloride 1,000 ml 07/07/17 01:44 07/07/17 02:12 Normal Saline - IV 07/07/17 01:45 1,000 ml ONCE ONE Administration Thiamine HCl 100 mg 07/07/17 00:28 07/07/17 01:08 Vitamin B1 - PO 07/07/17 00:29 100 mg ONCE ONE Administration Medical Decision Making - Medical Decision Making 07/07/17 12:08 Patient signed out to me this morning by Dr. Prater, pending urinalysis and CT scan of her abdomen/pelvis. UA is negative. CT scan has been performed, we are awaiting the results. Pt requiring multiple doses of ativan for nausea and vomiting. 07/07/17 13:06 CT showed GB wall thickening and gallstones but no fluid and to correlate clinically. Pt with no RUQ ttp, but will order US given diffuse abd pain. Discussed case with admitting hospitalist, pt accepted for admission to med/ surg. Case discussed in detail with admitting physician including history, physical exam and ancillary studies. Admitting physician has assumed care for the patient, will follow all pending diagnostics and will complete the evaluation and treatment. *DC/Admit/Observation/Transfer Diagnosis at time of Disposition: Opioid dependence with withdrawal, Alcohol abuse, Nausea and vomiting - Discharge Dispostion Condition at time of disposition: Stable Admit: Yes - Referrals - Patient Instructions - Post Discharge Activity - Attestations Physician Attestion: 07/07/17 13:05 I, Dr. Jacinto Rios MD, attest that this document has been prepared under my direction and personally reviewed by me in its entirety. I further attest, that it accurately reflects all work, treatment, procedures and medical decision -making performed by me.
[2017-07-07 17:21] LABS: OPIATES, URI NEGATIVE ng/ml (CUTOFF=300); PHENCYCLIDINE,URINE NEGATIVE ng/ml (CUTOFF=25); URINE AMPHETAMINES NEGATIVE ng/ml (CUTOFF=500); URINE BARBITURATES NEGATIVE ng/ml (CUTOFF=200)
[2017-07-07 17:24] LABS: COCAINE, UR POSITIVE ng/ml (CUTOFF=300); METHADONE, UR POSITIVE ng/ml (CUTOFF=300); URINE BENZODIAZEPINES POSITIVE ng/ml (CUTOFF=200)
--- NOTE | 2017-07-07 17:56 | HP ---
CHIEF COMPLAINT: PCP: HISTORY OF PRESENT ILLNESS: Patient is a 51-year-old female with a long history of alcohol, heroin, cocaine , and nicotine dependence, HIV+, bipolar, COPD, asthma, and neuropathy on bilateral lower extremities. She presents ,who presents to the ED with abdominal pain. The patient was admitted to [address] [place] [address] for alcohol, cocaine, and heroin withdrawal. She reports doing 10 bags of heroin a day and also snorts cocaine. At [facility], the patient had 2 episodes of vomiting, nonbloody , nonbilious. She was sent to the ED for evaluation for her abdominal pain. On exam, patient is awake, states that she is having abdominal pain. Abdomen is distended, hypoactive bowel sounds. ER course was notable for: (1) us/abdomen: mild hepatomegaly with course echotexture, large non mobile gallstone measuring 3.3 cm with small sludge and without evidence of acute karine. (2) (3) Recent Travel: PAST MEDICAL HISTORY: PAST SURGICAL HISTORY: Social History: Smoking: yes Alcohol: yes Drugs: polysubstance abuse Family History: Allergies No Known Allergies Allergy (Verified 07/06/17 22:12) HOME MEDICATIONS: Home Medications Medication Instructions Recorded Albuterol Sulfate Inhaler - 2 inh PO TID 07/05/17 [Ventolin Hfa Inhaler -] Atazanavir [Reyataz -] 300 mg PO DAILY 07/05/17 Gabapentin [Neurontin -] 300 mg PO TID 07/05/17 Quetiapine Fumarate [Seroquel -] 200 mg PO DAILY 07/05/17 Trazodone HCl [Desyrel -] 100 mg PO HS 07/05/17 REVIEW OF SYSTEMS CONSTITUTIONAL: Absent: fever, chills, diaphoresis, generalized weakness, malaise, loss of appetite, weight change HEENT: Absent: rhinorrhea, nasal congestion, throat pain, throat swelling, difficulty swallowing, mouth swelling, ear pain, eye pain, visual changes CARDIOVASCULAR: Absent: chest pain, syncope, palpitations, irregular heart rate, lightheadedness , peripheral edema RESPIRATORY: Absent: cough, shortness of breath, dyspnea with exertion, orthopnea, wheezing, stridor, hemoptysis GENITOURINARY: Absent: dysuria, frequency, urgency, hesitancy, hematuria, flank pain, genital pain MUSCULOSKELETAL: Absent: myalgia, arthralgia, joint swelling, back pain, neck pain SKIN: Absent: rash, itching, pallor HEMATOLOGIC/IMMUNOLOGIC: Absent: easy bleeding, easy bruising, lymphadenopathy, frequent infections ENDOCRINE: Absent: unexplained weight gain, unexplained weight loss, heat intolerance, cold intolerance PHYSICAL EXAMINATION Vital Signs - 24 hr 07/06/17 07/07/17 07/07/17 21:39 02:25 11:27 Temperature 98.0 F Pulse Rate 63 Pulse Rate [ 71 72 Right Radial] Respiratory 18 18 18 Rate Blood Pressure 136/93 Blood Pressure 127/69 140/88 [Right Arm] O2 Sat by Pulse 100 100 99 Oximetry (%) 07/07/17 07/07/17 15:30 17:26 Temperature 98.2 F Pulse Rate 71 Pulse Rate [ 70 Right Radial] Respiratory 16 22 Rate Blood Pressure 140/86 Blood Pressure 132/62 [Right Arm] O2 Sat by Pulse Oximetry (%) GENERAL: Awake, alert, and fully oriented, verbalizing abdominal pain/distress. HEAD: Normal with no signs of trauma. EYES: Pupils equal, round and reactive to light, extraocular movements intact, sclera anicteric, conjunctiva clear. No lid lag. EARS, NOSE, THROAT: Ears normal, nares patent, oropharynx clear without exudates. Moist mucous membranes. NECK: Normal range of motion, supple without lymphadenopathy, JVD, or masses. LUNGS: Breath sounds equal, diminished bilaterally HEART: Regular rate and rhythm ABDOMEN: Distended abdomen, hypoactive bowel sounds, pain with deep palpation of abdominal area MUSCULOSKELETAL: Normal range of motion at all joints. No bony deformities or tenderness. No CVA tenderness. UPPER EXTREMITIES: No clubbing. No peripheral edema. LOWER EXTREMITIES: No peripheral edema. NEUROLOGICAL: Cranial nerves II-XII intact. Normal speech. Normal gait. PSYCHIATRIC: Cooperative. Laboratory Results - last 24 hr 07/06/17 07/06/17 07/06/17 08:30 15:25 22:57 WBC RBC Hgb Hct MCV MCH MCHC RDW Plt Count MPV Neutrophils % Lymphocytes % Monocytes % Eosinophils % Basophils % Sodium Cancelled Potassium Cancelled Chloride Cancelled Carbon Dioxide Cancelled Anion Gap Cancelled BUN Cancelled Creatinine Cancelled Creat Clearance w eGFR Cancelled Random Glucose Cancelled Lactic Acid Calcium Cancelled Magnesium Cancelled Total Bilirubin Cancelled AST Cancelled ALT Cancelled Alkaline Phosphatase Cancelled Total Protein Cancelled Albumin Cancelled Lipase Cancelled Beta HCG, Quant Urine Color Ltyellow Urine Appearance Clear Urine pH 8.0 D Ur Specific [place] 1.014 Urine Protein Negative Urine Glucose (UA) Negative Urine Ketones Negative Urine Blood Negative Urine Nitrite Negative Urine Bilirubin Negative Urine Urobilinogen Negative Ur Leukocyte Esterase Negative Opiates Screen Negative Methadone Screen Positive Barbiturate Screen Negative Phencyclidine Screen Negative Ur Amphetamines Screen Negative MDMA (Ecstasy) Screen Negative Benzodiazepines Screen Positive Cocaine Screen Positive U Marijuana (THC) Screen Negative 07/06/17 07/06/17 07/07/17 22:57 22:57 01:05 WBC 5.4 D RBC 3.67 Hgb 12.0 Hct 36.0 MCV 98.1 H MCH 32.8 MCHC 33.4 RDW 13.5 Plt Count 245 MPV 9.1 Neutrophils % 74.4 Lymphocytes % 17.2 Monocytes % 8.1 Eosinophils % 0.1 Basophils % 0.2 Sodium 132 L Potassium 4.2 Chloride 98 Carbon Dioxide 27 Anion Gap 7 L BUN 10 Creatinine 0.7 Creat Clearance w eGFR > 60 Random Glucose 112 H Lactic Acid 1.5 Calcium 8.2 L Magnesium Total Bilirubin 0.3 D AST 29 ALT 29 Alkaline Phosphatase 272 H Total Protein 9.6 H Albumin 2.6 L Lipase Beta HCG, Quant Urine Color Urine Appearance Urine pH Ur Specific [place] Urine Protein Urine Glucose (UA) Urine Ketones Urine Blood Urine Nitrite Urine Bilirubin Urine Urobilinogen Ur Leukocyte Esterase Opiates Screen Methadone Screen Barbiturate Screen Phencyclidine Screen Ur Amphetamines Screen MDMA (Ecstasy) Screen Benzodiazepines Screen Cocaine Screen U Marijuana (THC) Screen 07/07/17 07/07/17 01:05 08:55 WBC RBC Hgb Hct MCV MCH MCHC RDW Plt Count MPV Neutrophils % Lymphocytes % Monocytes % Eosinophils % Basophils % Sodium Potassium Chloride Carbon Dioxide Anion Gap BUN Creatinine Creat Clearance w eGFR Random Glucose Lactic Acid Calcium Magnesium 1.4 L Total Bilirubin AST ALT Alkaline Phosphatase Total Protein Albumin Lipase 56 L Beta HCG, Quant 1.5 Urine Color Urine Appearance Urine pH Ur Specific [place] Urine Protein Urine Glucose (UA) Urine Ketones Urine Blood Urine Nitrite Urine Bilirubin Urine Urobilinogen Ur Leukocyte Esterase Opiates Screen Methadone Screen Barbiturate Screen Phencyclidine Screen Ur Amphetamines Screen MDMA (Ecstasy) Screen Benzodiazepines Screen Cocaine Screen U Marijuana (THC) Screen ASSESSMENT/PLAN: Patient is a 51-year-old female with a long history of alcohol, heroin, cocaine , and nicotine dependence, HIV+, bipolar, COPD, asthma, and neuropathy on bilateral lower extremities. She presents ,who presents to the ED with abdominal pain. The patient was admitted to [address] [place] [address] for alcohol, cocaine, and heroin withdrawal. She reports doing 10 bags of heroin a day and also snorts cocaine. At [facility], the patient had 2 episodes of vomiting, nonbloody , nonbilious. She was sent to the ED for evaluation for her abdominal pain. On exam, patient is awake, states that she is having abdominal pain. Abdomen is distended, hypoactive bowel sounds. GI: Abdominal pain Abdominal distention u/s abdomen: mild hepatomegaly with course echotexture, large non mobile gallstone measuring 3.3 cm with small sludge and without evidence of acute karine. NPO NS @ 100 Scheduled Zosyn WBC within normal limits, no fevers, vitals stable, no antibiotics indicated Surgical consult with Dr. Hodgson Psyche: Alcohol, heroin, cocaine, and nicotine dependence Was on Libirum at [facility] NPO, will give scheduled Ativan 1mg q6 Morphine PRN ID: HIV + Continue home meds after patient is no longer NPO F.E.N. Fluids: IVF @ 100cc/hr Electrolytes: monitor Nutrition: NPO Visit type - Emergency Visit Emergency Visit: Yes ED Registration Date: 07/07/17 Care time: The patient presented to the Emergency Department on the above date and was hospitalized for further evaluation of their emergent condition. - New Patient This patient is new to me today: Yes Date on this admission: 07/08/17 - Critical Care Critical Care patient: No
[2017-07-07] MEDS ORDERED: ONDANSETRON 4 MG/2 ML VIAL IVPB PRN (18:18)
[2017-07-07] MEDS ORDERED: LORazepam 2 MG/ML SDV VIAL IVPUSH PRN (18:26)
[2017-07-07] MEDS ORDERED: FOLIC ACID INJECTION - 1 MG, THIAMINE HCL 100 MG, MULTIVIT INJECTION ADULT 10 ML in SOD... IVPB ONE (18:27)
[2017-07-07] MEDS ORDERED: morphine CARPU-JECT 10 MG/1 ML DISP.SYRIN IVPUSH PRN (18:30)
[2017-07-07] MEDS: PANTOPRAZOLE SODIUM 40 MG VIAL IVPUSH SCH (18:49)
[2017-07-07] MEDS: SODIUM CHLORIDE 1,000 ML IV SCH (18:50)
[2017-07-07] MEDS ORDERED: PIPERACIL/TAZOB 3.375 GM 3.375 GM/50 ML PREMIX IVPB SCH (19:15)
--- NOTE | 2017-07-07 19:25 | CONSULT ---
Consult Consult Specialty:: Surgery Reason for Consultation:: acute cholecystitis - History of Present Illness Chief Complaint: abdominal pain History of Present Illness: Patient is a 51-year-old female with a long history of alcohol, heroin, cocaine , and nicotine dependence, HIV+, bipolar, COPD, asthma, and neuropathy on bilateral lower extremities. She presents ,who presents to the ED with abdominal pain x 2days. The patient was admitted to [address] [place] [address] for alcohol, cocaine, and heroin withdrawal. She reports doing 10 bags of heroin a day and also snorts cocaine. At [facility], the patient had 2 episodes of vomiting, nonbloody, nonbilious. She was sent to the ED for evaluation for her abdominal pain. - History Source History Provided By: Patient - Past Medical History ...LMP: 05/20/16 Infectious Disease: Yes: HIV - Alcohol/Substance Use Hx Alcohol Use: Yes - Smoking History Smoking history: Unknown if ever smoked Have you smoked in the past 12 months: No Aproximately how many cigarettes per day: 20 Home Medications - Allergies Allergies/Adverse Reactions: Allergies Allergy/AdvReac Type Severity Reaction Status Date / Time No Known Allergies Allergy Verified 07/06/17 22:12 - Home Medications Home Medications: Ambulatory Orders Albuterol Sulfate Inhaler - [Ventolin Hfa Inhaler -] 2 inh PO TID 07/05/17 Atazanavir [Reyataz -] 300 mg PO DAILY 07/05/17 Gabapentin [Neurontin -] 300 mg PO TID 07/05/17 Quetiapine Fumarate [Seroquel -] 200 mg PO DAILY 07/05/17 Trazodone HCl [Desyrel -] 100 mg PO HS 07/05/17 Family Disease History - Family Disease History Family Disease History: Diabetes: Brother, Heart Disease: Brother, CA: Mother ( /brain), Other: Mother, Sister (no sister) Review of Systems - Review of Systems Constitutional: reports: Lethargy Eyes: reports: No Symptoms HENT: reports: No Symptoms Neck: reports: No Symptoms Gastrointestinal: reports: Abdominal Pain, Nausea, Vomiting Pain Intensity: 8 Physical Exam Vital Signs: Vital Signs Temperature 98.2 F 07/07/17 17:26 Pulse Rate 71 07/07/17 17:26 Respiratory Rate 22 07/07/17 17:26 Blood Pressure 140/86 07/07/17 17:26 O2 Sat by Pulse Oximetry (%) 99 07/07/17 11:27 Constitutional: Yes: Moderate Distress Eyes: Yes: Conjunctiva Clear HENT: Yes: Normocephalic Neck: Yes: Supple Cardiovascular: Yes: Regular Rate and Rhythm Respiratory: Yes: CTA Bilaterally Gastrointestinal: Yes: Tenderness (RUQ with fullness and + Handley's sign) ...Rectal Exam: Yes: Deferred Extremities: Yes: WNL Neurological: Yes: Oriented Labs: CBC, BMP 07/06/17 22:57 07/07/17 01:05 Imaging - Results Cat Scan: Report Reviewed, Image Reviewed Ultrasound: Report Reviewed, Image Reviewed Problem List - Problems (1) Acute calculous cholecystitis Assessment/Plan: NPO IVF start antibiotics change narcotic to Dilaudid possible cholecystectomy in am Code(s): K80.00 - CALCULUS OF GALLBLADDER W ACUTE CHOLECYST W/O OBSTRUCTION
[2017-07-07] MEDS: PIPERACILLIN/TAZOB 3.375 GM 3.375 GM in DEXTROSE 5%-WATER - 100 ML IVPB SCH (20:32)
[2017-07-07] MEDS: HYDROmorphone HCL CARPU-JECT 2 MG/1 ML DISP.SYRIN IM PRN (20:33)
[2017-07-07] MEDS: ONDANSETRON 4 MG/2 ML VIAL IVPB SCH (22:24)
[2017-07-07] MEDS: LORazepam 2 MG/ML SDV VIAL IVPUSH SCH (22:24)
[2017-07-08] MEDS: PIPERACILLIN/TAZOB 3.375 GM 3.375 GM in DEXTROSE 5%-WATER - 100 ML IVPB SCH (01:45)
[2017-07-08] MEDS: HYDROmorphone HCL CARPU-JECT 2 MG/1 ML DISP.SYRIN IM PRN ×3 (06:45→23:36)
[2017-07-08] MEDS ORDERED: ALBUTEROL SO4 2.5/IPRATROPIUM 0.5 INH SOL 3 ML VIAL.NEB. NEB PRN (07:37)
[2017-07-08 08:56] LABS: HEMATOCRIT 33.6 % (32.4-45.2); HEMOGLOBIN 11.2 GM/dL (10.7-15.3); MCH 32.4 pg (25.7-33.7); MCHC 33.2 g/dl (32.0-36.0); MEAN CELL VOLUME 97.4 fl (80-96); MEAN PLT VOLUME 8.5 fl (7.5-11.1); PLATELET COUNT 231 K/MM3 (134-434); RBC 3.46 M/mm3 (3.60-5.2); RDW 13.3 % (11.6-15.6); WHITE BLOOD COUNT 7.7 K/mm3 (4.0-10.0)
[2017-07-08 08:57] LABS: ANION GAP 9 (8-16); BLOOD UREA NITROGEN 7 mg/dL (7-18); CALCIUM 8.2 mg/dL (8.5-10.1); CHLORIDE 99 mmol/L (98-107); CO2 26 mmol/L (21-32); GLUCOSE,RANDOM 96 mg/dL (74-106); POTASSIUM 3.9 mmol/L (3.5-5.1); SODIUM 134 mmol/L (136-145)
[2017-07-08 08:59] LABS: CREATININE 0.6 mg/dL (0.55-1.02)
[2017-07-08 09:00] LABS: INR 1.08 (0.82-1.09); PROTHROMBIN TIME (PATIENT) 12.2 SEC (9.98-11.88)
--- NOTE | 2017-07-08 09:30 | PN ---
Progress Note, Physician Chief Complaint: abdominal pain History of Present Illness: Still c/o abdominal pain but less in intensity and points to the periumbilical area. Denies RUQ pain. - Current Medication List Current Medications: Active Medications Albuterol/Ipratropium (Duoneb -) 1 amp NEB Q6H PRN PRN Reason: SHORTNESS OF BREATH Hydromorphone HCl (Dilaudid Injection -) 2 mg IM Q4H PRN PRN Reason: PAIN LEVEL 4 - 6 Last Admin: 07/08/17 06:45 Dose: 2 mg Sodium Chloride (Normal Saline -) 1,000 mls @ 100 mls/hr IV ASDIR [facility] Last Admin: 07/07/17 18:50 Dose: 100 mls/hr Lorazepam (Ativan Injection -) 1 mg IVPUSH QID [facility] Last Admin: 07/07/17 22:24 Dose: 1 mg Ondansetron HCl (Zofran Injection) 4 mg IVPB QID [facility] Last Admin: 07/07/17 22:24 Dose: 4 mg Pantoprazole Sodium (Protonix Iv) 40 mg IVPUSH DAILY [facility] Last Admin: 07/07/17 18:49 Dose: 40 mg Piperacillin/Tazobactam/Dextrose (Zosyn 3.375gm Ivpb (Premix)) 3.375 gm IVPB Q8H-IV [facility] - Objective Vital Signs: Vital Signs Temperature 100.0 F H 07/08/17 06:01 Pulse Rate 76 07/08/17 06:01 Respiratory Rate 18 07/08/17 06:01 Blood Pressure 138/87 07/08/17 06:01 O2 Sat by Pulse Oximetry (%) 99 07/07/17 20:56 Constitutional: Yes: Mild Distress Eyes: Yes: WNL HENT: Yes: Normocephalic Neck: Yes: Supple Cardiovascular: Yes: Regular Rate and Rhythm Respiratory: Yes: CTA Bilaterally Gastrointestinal: Yes: Hepatomegaly (questionable), Tenderness (minimal to no RUQ tenderness, mild lower abdominal tenderness) ...Rectal Exam: Yes: Deferred Labs: CBC, BMP 07/08/17 07:00 INR, PTT INR 1.08 (0.82-1.09) 07/08/17 07:00 Problem List - Problems (1) Acute calculous cholecystitis Assessment/Plan: HIDA scan stat as patient has clinical improvement and conflicting CT and US reports cholecystectomy if positive for cystic duct obstruction Will be covered by Dr. Robles today. Code(s): K80.00 - CALCULUS OF GALLBLADDER W ACUTE CHOLECYST W/O OBSTRUCTION
[2017-07-08 09:35] LABS: ALBUMIN 2.3 g/dl (3.4-5.0); ALK PHOS 353 U/L (45-117); BILIRUBIN,DIRECT 0.4 mg/dL (0.0-0.2); SGOT/AST 71 U/L (15-37); SGPT/ALT 56 U/L (12-78); TOT PROT 9.1 g/dl (6.4-8.2)
[2017-07-08] MEDS: PANTOPRAZOLE SODIUM 40 MG VIAL IVPUSH SCH (10:14)
[2017-07-08] MEDS: ONDANSETRON 4 MG/2 ML VIAL IVPB SCH ×4 (10:14→21:53)
[2017-07-08] MEDS: LORazepam 2 MG/ML SDV VIAL IVPUSH SCH ×5 (13:58→21:53)
--- NOTE | 2017-07-08 15:33 | CON.ID ---
Consult Consult Specialty:: infectious diseases Referred by:: Reason for Consultation:: choleycystitis,abd pain - History of Present Illness Chief Complaint: abd pain History of Present Illness: 51-year-old female with a long history of alcohol, heroin, cocaine, and nicotine dependence, HIV+, bipolar, COPD, asthma, and neuropathy on bilateral lower extremities. She presents ,admitted with abdominal pain x 2days. The patient was admitted to [facility] for alcohol, cocaine, and heroin withdrawal. She reports doing 10 bags of heroin a day and also snorts cocaine. At [facility], the patient had 2 episodes of vomiting, nonbloody, nonbilious. patint was admitted and seen by surgery and was worked up and found to have choleycystitis and cbd stone on nuclear scan currently her main issue is pain all over the body - History Source History Provided By: Patient, Medical Record Limitations to Obtaining History: Poor Historian - Past Medical History ...LMP: 05/20/16 ...: No Infectious Disease: Yes: HIV - Alcohol/Substance Use Hx Alcohol Use: Yes - Smoking History Smoking history: Unknown if ever smoked Have you smoked in the past 12 months: No Aproximately how many cigarettes per day: 20 Home Medications - Allergies Allergies/Adverse Reactions: Allergies Allergy/AdvReac Type Severity Reaction Status Date / Time No Known Allergies Allergy Verified 07/06/17 22:12 - Home Medications Home Medications: Ambulatory Orders Albuterol Sulfate Inhaler - [Ventolin Hfa Inhaler -] 2 inh PO TID 07/05/17 Atazanavir [Reyataz -] 300 mg PO DAILY 07/05/17 Gabapentin [Neurontin -] 300 mg PO TID 07/05/17 Quetiapine Fumarate [Seroquel -] 200 mg PO DAILY 07/05/17 Trazodone HCl [Desyrel -] 100 mg PO HS 07/05/17 Family Disease History - Family Disease History Family Disease History: Diabetes: Brother, Heart Disease: Brother, CA: Mother ( /brain), Other: Mother, Sister (no sister) Review of Systems - Review of Systems Constitutional: reports: No Symptoms Eyes: reports: No Symptoms HENT: reports: No Symptoms Neck: reports: No Symptoms Cardiovascular: reports: No Symptoms Respiratory: reports: No Symptoms Gastrointestinal: reports: Abdominal Pain, Nausea, Vomiting Genitourinary: reports: No Symptoms Musculoskeletal: reports: No Symptoms Integumentary: reports: No Symptoms Neurological: reports: No Symptoms Endocrine: reports: No Symptoms Hematology/Lymphatic: reports: No Symptoms Psychiatric: reports: No Symptoms Physical Exam Vital Signs: Vital Signs Temperature 98.0 F 07/08/17 14:00 Pulse Rate 69 07/08/17 14:00 Respiratory Rate 20 07/08/17 14:00 Blood Pressure 136/81 07/08/17 14:00 O2 Sat by Pulse Oximetry (%) 99 07/07/17 20:56 Constitutional: Yes: Calm, Mild Distress Eyes: Yes: Conjunctiva Clear HENT: Yes: Other (poor oral hygeine) Neck: Yes: Supple Cardiovascular: Yes: Regular Rate and Rhythm Respiratory: Yes: Regular, CTA Bilaterally Gastrointestinal: Yes: Soft, Tenderness (ruq) Musculoskeletal: Yes: WNL Extremities: Yes: WNL Integumentary: Yes: WNL Neurological: Yes: Alert Psychiatric: Yes: Alert Labs: CBC, BMP 07/08/17 07:00 07/08/17 07:00 Imaging - Results Chest X-ray: Report Reviewed, Image Reviewed Cat Scan: Report Reviewed, Image Reviewed Ultrasound: Report Reviewed Other: Report Reviewed, Image Reviewed Assessment/Plan patient admitted with abd pain - Problems nausea vomiting abd pain cbd stone Acute calculous cholecystitis Code(s): K80.00 - CALCULUS OF GALLBLADDER W ACUTE CHOLECYST W/O OBSTRUCTION plan abx ivf as per surgery and primary team await for all other results
[2017-07-08] MEDS: PIPERACILLIN/TAZOB 4.5 GM 4.5 GM in DEXTROSE 5%-WATER - 100 ML IVPB SCH ×2 (16:24→17:11)
[2017-07-08] MEDS: SODIUM CHLORIDE 1,000 ML IV SCH (17:11)
--- NOTE | 2017-07-08 20:29 | PN ---
Physical Exam: SUBJECTIVE: Patient seen and examined. Appears comfortable at rest, states pain is improving. OBJECTIVE: HIDA scan with possible cholecystectomy today pending results Vital Signs Period Temp Pulse Resp BP Sys/Wang Pulse Ox Last 24 Hr 98.0 F-100.2 F 69-90 18-20 126-143/78-89 99 GENERAL: Awake, alert, and fully oriented, verbalizing abdominal pain/distress. HEAD: Normal with no signs of trauma. EYES: Pupils equal, round and reactive to light, extraocular movements intact, sclera anicteric, conjunctiva clear. No lid lag. EARS, NOSE, THROAT: Ears normal, nares patent, oropharynx clear without exudates. Moist mucous membranes. NECK: Normal range of motion, supple without lymphadenopathy, JVD, or masses. LUNGS: Breath sounds equal, diminished bilaterally HEART: Regular rate and rhythm ABDOMEN: Distended abdomen, + bowel sounds, pain with deep palpation of abdominal area MUSCULOSKELETAL: Normal range of motion at all joints. No bony deformities or tenderness. No CVA tenderness. UPPER EXTREMITIES: No clubbing. No peripheral edema. LOWER EXTREMITIES: No peripheral edema. NEUROLOGICAL: Normal speech. Normal gait. PSYCHIATRIC: Cooperative. Laboratory Results - last 24 hr 07/07/17 07/08/17 07/08/17 21:00 07:00 07:00 WBC 7.7 D RBC 3.46 L Hgb 11.2 Hct 33.6 MCV 97.4 H MCH 32.4 MCHC 33.2 RDW 13.3 Plt Count 231 MPV 8.5 PT with INR INR PTT (Actin FS) Sodium 134 L Potassium 3.9 Chloride 99 Carbon Dioxide 26 Anion Gap 9 BUN 7 Creatinine 0.6 Random Glucose 96 Calcium 8.2 L Total Bilirubin 1.0 D Direct Bilirubin 0.4 H AST 71 H ALT 56 Alkaline Phosphatase 353 H Troponin I 0.04 Total Protein 9.1 H Albumin 2.3 L Blood Type Antibody Screen 07/08/17 07/08/17 07/08/17 07:00 07:00 09:20 WBC RBC Hgb Hct MCV MCH MCHC RDW Plt Count MPV PT with INR 12.20 H INR 1.08 PTT (Actin FS) 35.0 H Sodium Potassium Chloride Carbon Dioxide Anion Gap BUN Creatinine Random Glucose Calcium Total Bilirubin Cancelled Direct Bilirubin Cancelled AST Cancelled ALT Cancelled Alkaline Phosphatase Cancelled Troponin I Total Protein Cancelled Albumin Cancelled Blood Type O POSITIVE Antibody Screen Negative 07/08/17 11:00 WBC RBC Hgb Hct MCV MCH MCHC RDW Plt Count MPV PT with INR INR PTT (Actin FS) Sodium Potassium Chloride Carbon Dioxide Anion Gap BUN Creatinine Random Glucose Calcium Total Bilirubin Direct Bilirubin AST ALT Alkaline Phosphatase Troponin I Total Protein Albumin Blood Type O POSITIVE Antibody Screen Active Medications Generic Name Dose Route Start Last Admin Trade Name Freq PRN Reason Stop Dose Admin Albuterol/Ipratropium 1 amp 07/08/17 07:37 Duoneb - NEB Q6H PRN SHORTNESS OF BREATH Hydromorphone HCl 2 mg 07/07/17 19:13 07/08/17 10:13 Dilaudid Injection - IM 2 mg Q4H PRN Administration PAIN LEVEL 4 - 6 Sodium Chloride 1,000 mls @ 100 mls/hr 07/07/17 18:30 07/08/17 17:11 Normal Saline - IV 100 mls/hr ASDIR [facility] Administration Piperacillin Sod/Tazobactam 100 mls @ 200 mls/hr 07/08/17 15:45 07/08/17 17: 11 Sod 4.5 gm/ Dextrose IVPB Not Given Q8H-IV [facility] Protocol Lorazepam 1 mg 07/07/17 22:00 07/08/17 17:11 Ativan Injection - IVPUSH 1 mg QID [facility] Administration Ondansetron HCl 4 mg 07/07/17 22:00 07/08/17 17:11 Zofran Injection IVPB 4 mg QID [facility] Administration Pantoprazole Sodium 40 mg 07/07/17 18:30 07/08/17 10:14 Protonix Iv IVPUSH 40 mg DAILY [facility] Administration ASSESSMENT/PLAN: Patient is a 51-year-old female with a long history of alcohol, heroin, cocaine , and nicotine dependence, HIV+, bipolar, COPD, asthma, and neuropathy on bilateral lower extremities. She presents ,who presents to the ED with abdominal pain. The patient was admitted to [facility] for alcohol, cocaine, and heroin withdrawal. She reports doing 10 bags of heroin a day and also snorts cocaine. At [facility], the patient had 2 episodes of vomiting, nonbloody , nonbilious. She was sent to the ED for evaluation for her abdominal pain. On exam, patient is awake, states that she is having abdominal pain. Abdomen is distended today but improving since admission, + bowel sounds. Hida scan 07/08: findings consistent with cystic duct obstruction and acute cholecystitis GI: Abdominal pain, acute Acute Cholecystitis as per HIDA scan u/s abdomen: mild hepatomegaly with course echotexture, large non mobile gallstone measuring 3.3 cm with small sludge and without evidence of acute karine. Hida scan 07/08: findings consistent with cystic duct obstruction and acute cholecystitis NPO NS @ 100 Protonix 40mg IV Scheduled Zosyn as per ID Surgical with Dr. Hodgson Psyche: Alcohol, heroin, cocaine, and nicotine dependence Was on Libirum at [facility], now NPO Wiill give scheduled Ativan 1mg q6 Dilaudid 2mg prn No signs of acute withdrawal Morphine PRN ID: HIV + Continue home meds after patient is no longer NPO Viral load, CD4 pending F.E.N. Fluids: IVF @ 100cc/hr Electrolytes: monitor Nutrition: NPO Prophylaxis: DVT: SCDs GI: Protonix Disposition. full code. Visit type - Emergency Visit Emergency Visit: Yes ED Registration Date: 07/07/17 Care time: The patient presented to the Emergency Department on the above date and was hospitalized for further evaluation of their emergent condition. - New Patient This patient is new to me today: No - Critical Care Critical Care patient: No - Discharge Referral Referred to [facility] Med P.C.: No
[2017-07-08] MEDS ORDERED: MAGNESIUM SULF 50% (8.12 MEQ/2 ML-1 GM VIAL) IVPB ONE (20:45)
[2017-07-08] MEDS ORDERED: MAGNESIUM 1GM/D5W - 1 GM/100 ML IVPB IVPB ONE (22:00)
[2017-07-09] MEDS: PIPERACILLIN/TAZOB 4.5 GM 4.5 GM in DEXTROSE 5%-WATER - 100 ML IVPB SCH ×3 (02:01→17:22)
[2017-07-09] MEDS: SODIUM CHLORIDE 1,000 ML IV SCH ×3 (03:47→20:40)
[2017-07-09] MEDS: HYDROmorphone HCL CARPU-JECT 2 MG/1 ML DISP.SYRIN IM PRN ×2 (05:30→12:00)
[2017-07-09 08:55] LABS: BASO % 0.2 % (0-2.0); EOS % 0.1 % (0-4.5); HEMATOCRIT 32.1 % (32.4-45.2); HEMOGLOBIN 10.8 GM/dL (10.7-15.3); LYMPH % 15.4 % (8-40); MCH 32.6 pg (25.7-33.7); MCHC 33.5 g/dl (32.0-36.0); MEAN CELL VOLUME 97.4 fl (80-96); MEAN PLT VOLUME 8.6 fl (7.5-11.1); MONO % 13.7 % (3.8-10.2); NEUT % 70.6 % (42.8-82.8); PLATELET COUNT 220 K/MM3 (134-434); RDW 13.4 % (11.6-15.6); WHITE BLOOD COUNT 7.7 K/mm3 (4.0-10.0)
[2017-07-09 09:34] LABS: ALBUMIN 2.1 g/dl (3.4-5.0); ANION GAP 8 (8-16); BLOOD UREA NITROGEN 9 mg/dL (7-18); CALCIUM 7.9 mg/dL (8.5-10.1); CHLORIDE 101 mmol/L (98-107); CO2 27 mmol/L (21-32); CREATININE 0.6 mg/dL (0.55-1.02); GLUCOSE,RANDOM 70 mg/dL (74-106); MAGNESIUM 1.9 mg/dL (1.8-2.4); POTASSIUM 3.8 mmol/L (3.5-5.1); SGOT/AST 33 U/L (15-37); SGPT/ALT 36 U/L (12-78); SODIUM 136 mmol/L (136-145)
[2017-07-09 09:36] LABS: ALK PHOS 264 U/L (45-117); BILIRUBIN,TOTAL 0.9 mg/dL (0.2-1.0); TOT PROT 8.6 g/dl (6.4-8.2)
[2017-07-09] MEDS ORDERED: PT OWN MED DRAWER 7, Y5N ONE (10:18)
[2017-07-09] MEDS: LORazepam 2 MG/ML SDV VIAL IVPUSH SCH ×4 (10:29→21:53)
[2017-07-09] MEDS: ONDANSETRON 4 MG/2 ML VIAL IVPB SCH ×4 (10:31→21:53)
[2017-07-09] MEDS: PANTOPRAZOLE SODIUM 40 MG VIAL IVPUSH SCH (10:38)
--- NOTE | 2017-07-09 12:21 | PN ---
Progress Note, Physician History of Present Illness: Pt seen and examined. c/o being hungry. Generalized pain. - Current Medication List Current Medications: Active Medications Albuterol/Ipratropium (Duoneb -) 1 amp NEB Q6H PRN PRN Reason: SHORTNESS OF BREATH Hydromorphone HCl (Dilaudid Injection -) 2 mg IM Q4H PRN PRN Reason: PAIN LEVEL 4 - 6 Last Admin: 07/09/17 12:00 Dose: 2 mg Sodium Chloride (Normal Saline -) 1,000 mls @ 100 mls/hr IV ASDIR [facility] Last Admin: 07/09/17 03:47 Dose: 100 mls/hr Piperacillin Sod/Tazobactam (Sod 4.5 gm/ Dextrose) 100 mls @ 200 mls/hr IVPB Q8H-IV [facility] PRN Reason: Protocol Last Admin: 07/09/17 10:36 Dose: 200 mls/hr Lorazepam (Ativan Injection -) 1 mg IVPUSH QID [facility] Last Admin: 07/09/17 10:29 Dose: 1 mg Ondansetron HCl (Zofran Injection) 4 mg IVPB QID [facility] Last Admin: 07/09/17 10:31 Dose: 4 mg Pantoprazole Sodium (Protonix Iv) 40 mg IVPUSH DAILY [facility] Last Admin: 07/09/17 10:38 Dose: 40 mg - Objective Vital Signs: Vital Signs Temperature 98.6 F 07/09/17 08:20 Pulse Rate 81 07/09/17 08:20 Respiratory Rate 16 07/09/17 08:20 Blood Pressure 128/76 07/09/17 08:20 O2 Sat by Pulse Oximetry (%) 99 07/09/17 08:00 Constitutional: Yes: No Distress Cardiovascular: Yes: Regular Rate and Rhythm Respiratory: Yes: CTA Bilaterally Gastrointestinal: Yes: Normal Bowel Sounds, Tenderness (RUQ) Genitourinary: Yes: WNL Neurological: Yes: Alert, Oriented Labs: CBC, BMP 07/09/17 08:00 07/09/17 08:00 INR, PTT INR 1.08 (0.82-1.09) 07/08/17 07:00 - ....Imaging Other: Report Reviewed Problem List - Problems (1) Acute calculous cholecystitis Code(s): K80.00 - CALCULUS OF GALLBLADDER W ACUTE CHOLECYST W/O OBSTRUCTION (2) Alcohol abuse Code(s): F10.10 - ALCOHOL ABUSE, UNCOMPLICATED (3) COPD (chronic obstructive pulmonary disease) Code(s): J44.9 - CHRONIC OBSTRUCTIVE PULMONARY DISEASE, UNSPECIFIED Qualifiers: COPD type: emphysema Emphysema type: unspecified Qualified Code(s): J43.9 - Emphysema, unspecified (4) HIV (human immunodeficiency virus infection) Code(s): B20 - HUMAN IMMUNODEFICIENCY VIRUS [HIV] DISEASE (5) Bipolar II disorder Code(s): F31.81 - BIPOLAR II DISORDER Assessment/Plan Cystic Duct Obstruction/Acute cholecystitis - surgery following - cont. Zosyn IV for now - f/u CD4, HIV viral load currently npo monitor vitals
[2017-07-09] MEDS ORDERED: LORazepam 2 MG/ML SDV VIAL IVPUSH ONE (14:45)
--- NOTE | 2017-07-09 17:15 | PN ---
Progress Note, Physician Chief Complaint: Acute cholecystitis History of Present Illness: More awake and feels hungry Denies abdominal pain - Current Medication List Current Medications: Active Medications Albuterol/Ipratropium (Duoneb -) 1 amp NEB Q6H PRN PRN Reason: SHORTNESS OF BREATH Hydromorphone HCl (Dilaudid Injection -) 2 mg IM Q4H PRN PRN Reason: PAIN LEVEL 4 - 6 Last Admin: 07/09/17 12:00 Dose: 2 mg Sodium Chloride (Normal Saline -) 1,000 mls @ 100 mls/hr IV ASDIR [facility] Last Admin: 07/09/17 14:50 Dose: 100 mls/hr Piperacillin Sod/Tazobactam (Sod 4.5 gm/ Dextrose) 100 mls @ 200 mls/hr IVPB Q8H-IV [facility] PRN Reason: Protocol Last Admin: 07/09/17 10:36 Dose: 200 mls/hr Lorazepam (Ativan Injection -) 1 mg IVPUSH QID [facility] Last Admin: 07/09/17 13:05 Dose: 1 mg Ondansetron HCl (Zofran Injection) 4 mg IVPB QID [facility] Last Admin: 07/09/17 13:09 Dose: 4 mg Pantoprazole Sodium (Protonix Iv) 40 mg IVPUSH DAILY [facility] Last Admin: 07/09/17 10:38 Dose: 40 mg - Objective Vital Signs: Vital Signs Temperature 99.1 F 07/09/17 15:07 Pulse Rate 73 07/09/17 15:07 Respiratory Rate 18 07/09/17 15:07 Blood Pressure 127/71 07/09/17 15:07 O2 Sat by Pulse Oximetry (%) 99 07/09/17 08:00 Constitutional: Yes: No Distress Eyes: Yes: Conjunctiva Clear HENT: Yes: Normocephalic Neck: Yes: Supple Cardiovascular: Yes: Regular Rate and Rhythm Respiratory: Yes: CTA Bilaterally Gastrointestinal: Yes: Soft, Tenderness (none at RUQ) Labs: CBC, BMP 07/09/17 08:00 07/09/17 08:00 INR, PTT INR 1.08 (0.82-1.09) 07/08/17 07:00 Problem List - Problems (1) Acute calculous cholecystitis Assessment/Plan: Resolving acute cholecystitis, possible hydrops of the gb Trial of clear liquids and advance as tolerated If pain recurs, will need cholecystectomy during this hospital stay, otherwise, may be followed as OP. Code(s): K80.00 - CALCULUS OF GALLBLADDER W ACUTE CHOLECYST W/O OBSTRUCTION
--- NOTE | 2017-07-09 20:15 | PN ---
Physical Exam: SUBJECTIVE: Patient seen and examined in hallway. She is very hungry, denies acute pain, nausea, vomiting OBJECTIVE: Vital Signs Period Temp Pulse Resp BP Sys/Wang Pulse Ox Last 24 Hr 98.3 F-100.5 F 73-85 16-19 118-133/54-84 99 PE Neuro: alert, awake, cn 2-12intact HEENT: poor dentition Pulm: CTAB CV: s1 s2 rrr no mrg Abd: mild RUQ tenderness to deep palpation Ext: warm, no edema Laboratory Results - last 24 hr 07/07/17 07/09/17 07/09/17 07:00 08:00 08:00 WBC 7.4 7.7 RBC 3.30 L Hgb 10.8 Hct 32.1 L MCV 97.4 H MCH 32.6 MCHC 33.5 RDW 13.4 Plt Count 220 MPV 8.6 Absolute Lymphs (auto) 1.1 Neutrophils % 70.6 Lymphocytes % 15.4 Monocytes % 13.7 H Eosinophils % 0.1 Basophils % 0.2 Lymphocytes 15 Nucleated RBCs TNP Sodium 136 Potassium 3.8 Chloride 101 Carbon Dioxide 27 Anion Gap 8 BUN 9 Creatinine 0.6 Creat Clearance w eGFR > 60 Random Glucose 70 L Calcium 7.9 L Magnesium 1.9 Total Bilirubin 0.9 AST 33 ALT 36 Alkaline Phosphatase 264 H Total Protein 8.6 H Albumin 2.1 L Absolute CD3 Count 867 % CD3+ Lymphocytes 78.8 Absolute CD4 [place] 315 L % CD4+ Lymphocyte 28.6 L CD4/CD8 Ratio 0.61 L % CD8+ Lymphocyte 47.1 H Absolute CD8 Count 518 Current Medications Generic Name Dose Route Start Last Admin Trade Name Freq PRN Reason Stop Dose Admin Albuterol/Ipratropium 1 amp 07/08/17 07:37 Duoneb - NEB Q6H PRN SHORTNESS OF BREATH Atazanavir 300 mg 07/10/17 10:00 Reyataz - PO DAILY [facility] Gabapentin 300 mg 07/09/17 22:00 Neurontin - PO TID [facility] Hydromorphone HCl 2 mg 07/07/17 19:13 07/09/17 12:00 Dilaudid Injection - IM 2 mg Q4H PRN Administration PAIN LEVEL 4 - 6 Piperacillin Sod/Tazobactam 100 mls @ 200 mls/hr 07/08/17 15:45 07/09/17 17: 22 Sod 4.5 gm/ Dextrose IVPB 200 mls/hr Q8H-IV [facility] Administration Protocol Sodium Chloride 1,000 mls @ 75 mls/hr 07/09/17 20:39 Normal Saline - IV ASDIR [facility] Lorazepam 1 mg 07/07/17 22:00 07/09/17 17:17 Ativan Injection - IVPUSH 1 mg QID [facility] Administration Ondansetron HCl 4 mg 07/07/17 22:00 07/09/17 17:23 Zofran Injection IVPB 4 mg QID [facility] Administration Quetiapine Fumarate 200 mg 07/10/17 10:00 Seroquel - PO DAILY [facility] Trazodone HCl 100 mg 07/09/17 22:00 Desyrel - PO HS [facility] Assessment: 51 year old female with a long history of alcohol, heroin, cocaine, and nicotine dependence, HIV+, bipolar, COPD, asthma, and neuropathy on bilateral lower extremities admitted from [facility] with abdominal pain, and vomiting Plan: 1. Acute Cholecystitis - Possibly hydrops of GB - Trial clear liquids - If tolerating, dc home, if pain persists will need cholecystectomy - Zosyn per ID - Decrease fluids 2. Substance abuse, heroine - No signs of withdrawal - Continue ativan - Resume seroquel, trazadone 3. HIV - Restart Atazanavir 4. DVT - SCDS Visit type - Emergency Visit Emergency Visit: Yes ED Registration Date: 07/07/17 Care time: The patient presented to the Emergency Department on the above date and was hospitalized for further evaluation of their emergent condition. - New Patient This patient is new to me today: Yes Date on this admission: 07/09/17 - Critical Care Critical Care patient: No
[2017-07-09] MEDS: traZODone HCL 50 MG TABLET (FP) PO SCH (21:53)
[2017-07-09] MEDS: GABAPENTIN 300 MG CAPSULE (FP) PO SCH (21:53)
[2017-07-10] MEDS: PIPERACILLIN/TAZOB 4.5 GM 4.5 GM in DEXTROSE 5%-WATER - 100 ML IVPB SCH ×3 (01:18→17:22)
[2017-07-10] MEDS: GABAPENTIN 300 MG CAPSULE (FP) PO SCH ×3 (06:11→21:15)
[2017-07-10] MEDS ORDERED: PT OWN MED DRAWER 7, Y5N ONE (10:13)
[2017-07-10] MEDS: LORazepam 2 MG/ML SDV VIAL IVPUSH SCH ×4 (10:16→21:15)
[2017-07-10] MEDS: ATAZANAVIR SO4 150 MG CAPSULE PO SCH (10:20)
[2017-07-10] MEDS: ONDANSETRON 4 MG/2 ML VIAL IVPB SCH ×4 (10:21→21:15)
[2017-07-10] MEDS: QUEtiapine FUMARATE 200 MG TABLET PO SCH (10:21)
[2017-07-10] MEDS: SODIUM CHLORIDE 1,000 ML IV SCH (10:28)
--- NOTE | 2017-07-10 13:34 | PN ---
Progress Note, Physician Chief Complaint: Acute cholecystitis History of Present Illness: Denies pain when asked but has been asking for pain medication as per nursing staff Patient is agitated and somewhat confused. Had a fall yesterday Tolerating clear liquids - Current Medication List Current Medications: Active Medications Albuterol/Ipratropium (Duoneb -) 1 amp NEB Q6H PRN PRN Reason: SHORTNESS OF BREATH Atazanavir (Reyataz -) 300 mg PO DAILY [facility] Last Admin: 07/10/17 10:20 Dose: 300 mg Gabapentin (Neurontin -) 300 mg PO TID [facility] Last Admin: 07/10/17 06:11 Dose: 300 mg Hydromorphone HCl (Dilaudid Injection -) 2 mg IM Q4H PRN PRN Reason: PAIN LEVEL 4 - 6 Last Admin: 07/09/17 12:00 Dose: 2 mg Piperacillin Sod/Tazobactam (Sod 4.5 gm/ Dextrose) 100 mls @ 200 mls/hr IVPB Q8H-IV [facility] PRN Reason: Protocol Last Admin: 07/10/17 10:20 Dose: 200 mls/hr Sodium Chloride (Normal Saline -) 1,000 mls @ 75 mls/hr IV ASDIR [facility] Last Admin: 07/10/17 10:28 Dose: 75 mls/hr Lorazepam (Ativan Injection -) 1 mg IVPUSH QID [facility] Last Admin: 07/10/17 10:16 Dose: 1 mg Ondansetron HCl (Zofran Injection) 4 mg IVPB QID [facility] Last Admin: 07/10/17 10:21 Dose: 4 mg Quetiapine Fumarate (Seroquel -) 200 mg PO DAILY [facility] Last Admin: 07/10/17 10:21 Dose: 200 mg Trazodone HCl (Desyrel -) 100 mg PO HS [facility] Last Admin: 07/09/17 21:53 Dose: 100 mg - Objective Vital Signs: Vital Signs Temperature 100.4 F H 07/10/17 08:00 Pulse Rate 80 07/10/17 08:00 Respiratory Rate 18 07/10/17 08:00 Blood Pressure 119/64 07/10/17 08:00 O2 Sat by Pulse Oximetry (%) 98 07/10/17 08:00 Constitutional: Yes: Other (agitated) Gastrointestinal: Yes: Tenderness (no RUQ tenderness) Labs: CBC, BMP 07/09/17 08:00 07/09/17 08:00 INR, PTT INR 1.08 (0.82-1.09) 07/08/17 07:00 Laboratory Last Values WBC 7.7 K/mm3 (4.0-10.0) 07/09/17 08:00 RBC 3.30 M/mm3 (3.60-5.2) L 07/09/17 08:00 Hgb 10.8 GM/dL (10.7-15.3) 07/09/17 08:00 Hct 32.1 % (32.4-45.2) L 07/09/17 08:00 MCV 97.4 fl (80-96) H 07/09/17 08:00 MCH 32.6 pg (25.7-33.7) 07/09/17 08:00 MCHC 33.5 g/dl (32.0-36.0) 07/09/17 08:00 RDW 13.4 % (11.6-15.6) 07/09/17 08:00 Plt Count 220 K/MM3 (134-434) 07/09/17 08:00 MPV 8.6 fl (7.5-11.1) 07/09/17 08:00 Absolute Lymphs (auto) 1.1 x10E3/uL (0.7-3.1) 07/07/17 07:00 Neutrophils % 70.6 % (42.8-82.8) 07/09/17 08:00 Lymphocytes % 15.4 % (8-40) 07/09/17 08:00 Monocytes % 13.7 % (3.8-10.2) H 07/09/17 08:00 Eosinophils % 0.1 % (0-4.5) 07/09/17 08:00 Basophils % 0.2 % (0-2.0) 07/09/17 08:00 Lymphocytes 15 % (Not Estab.) 07/07/17 07:00 Nucleated RBCs TNP 07/07/17 07:00 PT with INR 12.20 SEC (9.98-11.88) H 07/08/17 07:00 INR 1.08 (0.82-1.09) 07/08/17 07:00 PTT (Actin FS) 35.0 SECONDS (26.9-34.4) H 07/08/17 07:00 Sodium 136 mmol/L (136-145) 07/09/17 08:00 Potassium 3.8 mmol/L (3.5-5.1) 07/09/17 08:00 Chloride 101 mmol/L (98-107) 07/09/17 08:00 Carbon Dioxide 27 mmol/L (21-32) 07/09/17 08:00 Anion Gap 8 (8-16) 07/09/17 08:00 BUN 9 mg/dL (7-18) 07/09/17 08:00 Creatinine 0.6 mg/dL (0.55-1.02) 07/09/17 08:00 Creat Clearance w eGFR > 60 (>60) 07/09/17 08:00 Random Glucose 70 mg/dL (74-106) L 07/09/17 08:00 Lactic Acid 1.5 mmol/L (0.0-2.0) 07/06/17 22:57 Calcium 7.9 mg/dL (8.5-10.1) L 07/09/17 08:00 Magnesium 1.9 mg/dL (1.8-2.4) 07/09/17 08:00 Total Bilirubin 0.9 mg/dL (0.2-1.0) 07/09/17 08:00 Direct Bilirubin Cancelled 07/08/17 09:20 AST 33 U/L (15-37) 07/09/17 08:00 ALT 36 U/L (12-78) 07/09/17 08:00 Alkaline Phosphatase 264 U/L (45-117) H 07/09/17 08:00 Troponin I 0.04 ng/ml (0.00-0.05) 07/07/17 21:00 Total Protein 8.6 g/dl (6.4-8.2) H 07/09/17 08:00 Albumin 2.1 g/dl (3.4-5.0) L 07/09/17 08:00 Lipase 56 U/L (73-393) L 07/07/17 01:05 Beta HCG, Quant 1.5 mIU/ml 07/07/17 08:55 Urine Color Ltyellow 07/06/17 08:30 Urine Appearance Clear 07/06/17 08:30 Urine pH 8.0 (5.0-8.0) D 07/06/17 08:30 Ur Specific [place] 1.014 (1.001-1.035) 07/06/17 08:30 Urine Protein Negative (NEGATIVE) 07/06/17 08:30 Urine Glucose (UA) Negative (NEGATIVE) 07/06/17 08:30 Urine Ketones Negative (NEGATIVE) 07/06/17 08:30 Urine Blood Negative (NEGATIVE) 07/06/17 08:30 Urine Nitrite Negative (NEGATIVE) 07/06/17 08:30 Urine Bilirubin Negative (NEGATIVE) 07/06/17 08:30 Urine Urobilinogen Negative mg/dL (0.2-1.0) 07/06/17 08:30 Ur Leukocyte Esterase Negative (NEGATIVE) 07/06/17 08:30 Opiates Screen Negative ng/ml (SMDUOX=750) 07/06/17 15:25 Methadone Screen Positive ng/ml (MJJKMC=235) 07/06/17 15:25 Barbiturate Screen Negative ng/ml (YTXCGP=574) 07/06/17 15:25 Phencyclidine Screen Negative ng/ml (CUTOFF=25) 07/06/17 15:25 Ur Amphetamines Screen Negative ng/ml (XGOUDL=205) 07/06/17 15:25 MDMA (Ecstasy) Screen Negative ng/ml (QZZCMG=164) 07/06/17 15:25 Benzodiazepines Screen Positive ng/ml (DPKEFG=133) 07/06/17 15:25 Cocaine Screen Positive ng/ml (MXZBKU=861) 07/06/17 15:25 U Marijuana (THC) Screen Negative ng/ml (CUTOFF=50) 07/06/17 15:25 Absolute CD3 Count 867 /uL (622-2402) 07/07/17 07:00 % CD3+ Lymphocytes 78.8 % (57.5-86.2) 07/07/17 07:00 Absolute CD4 [place] 315 /uL (359-1519) L 07/07/17 07:00 % CD4+ Lymphocyte 28.6 % (30.8-58.5) L 07/07/17 07:00 CD4/CD8 Ratio 0.61 (0.92-3.72) L 07/07/17 07:00 % CD8+ Lymphocyte 47.1 % (12.0-35.5) H 07/07/17 07:00 Absolute CD8 Count 518 /uL (109-897) 07/07/17 07:00 Blood Type O POSITIVE 07/08/17 11:00 Antibody Screen Negative 07/08/17 07:00 Problem List - Problems (1) Acute calculous cholecystitis Assessment/Plan: Resolving acute cholecystitis, possible hydrops of the gb continue clear liquids If pain recurs, will need cholecystectomy during this hospital stay, otherwise, may be followed as OP. medical management for drug withdrawal Code(s): K80.00 - CALCULUS OF GALLBLADDER W ACUTE CHOLECYST W/O OBSTRUCTION
--- NOTE | 2017-07-10 14:54 | PN ---
Progress Note, Physician History of Present Illness: Pt is sedated, unable to answer questions. Unable to obtain information regarding her complete antiretroviral regimen, last CD4/HIV viral load values, how compliant she has been, and when her last outpatient f/u for HIV management was. Events noted. Was noted to have abd pain with p.o. liquids. Remains afebrile. - Current Medication List Current Medications: Active Medications Albuterol/Ipratropium (Duoneb -) 1 amp NEB Q6H PRN PRN Reason: SHORTNESS OF BREATH Atazanavir (Reyataz -) 300 mg PO DAILY [facility] Last Admin: 07/10/17 10:20 Dose: 300 mg Gabapentin (Neurontin -) 300 mg PO TID [facility] Last Admin: 07/10/17 14:05 Dose: 300 mg Hydromorphone HCl (Dilaudid Injection -) 2 mg IM Q4H PRN PRN Reason: PAIN LEVEL 4 - 6 Last Admin: 07/09/17 12:00 Dose: 2 mg Piperacillin Sod/Tazobactam (Sod 4.5 gm/ Dextrose) 100 mls @ 200 mls/hr IVPB Q8H-IV [facility] PRN Reason: Protocol Last Admin: 07/10/17 10:20 Dose: 200 mls/hr Sodium Chloride (Normal Saline -) 1,000 mls @ 75 mls/hr IV [facility] Last Admin: 07/10/17 10:28 Dose: 75 mls/hr Lorazepam (Ativan Injection -) 1 mg IVPUSH QID [facility] Last Admin: 07/10/17 14:14 Dose: 1 mg Ondansetron HCl (Zofran Injection) 4 mg IVPB QID [facility] Last Admin: 07/10/17 14:05 Dose: 4 mg Quetiapine Fumarate (Seroquel -) 200 mg PO DAILY [facility] Last Admin: 07/10/17 10:21 Dose: 200 mg Trazodone HCl (Desyrel -) 100 mg PO HS [facility] Last Admin: 07/09/17 21:53 Dose: 100 mg - Objective Vital Signs: Vital Signs Temperature 100.4 F H 07/10/17 08:00 Pulse Rate 80 07/10/17 08:00 Respiratory Rate 18 07/10/17 08:00 Blood Pressure 119/64 07/10/17 08:00 O2 Sat by Pulse Oximetry (%) 98 01/21/18 08:00 Constitutional: Yes: Other (sedated) Cardiovascular: Yes: Regular Rate and Rhythm Respiratory: Yes: Regular Gastrointestinal: Yes: Normal Bowel Sounds, Soft, Tenderness (RUQ with deep palpation) Labs: CBC, BMP 07/09/17 08:00 07/09/17 08:00 INR, PTT INR 1.08 (0.82-1.09) 07/08/17 07:00 CD4- 315 Problem List - Problems (1) Acute calculous cholecystitis Code(s): K80.00 - CALCULUS OF GALLBLADDER W ACUTE CHOLECYST W/O OBSTRUCTION (2) Alcohol abuse Code(s): F10.10 - ALCOHOL ABUSE, UNCOMPLICATED (3) COPD (chronic obstructive pulmonary disease) Code(s): J44.9 - CHRONIC OBSTRUCTIVE PULMONARY DISEASE, UNSPECIFIED Qualifiers: COPD type: emphysema Emphysema type: unspecified Qualified Code(s): J43.9 - Emphysema, unspecified (4) HIV (human immunodeficiency virus infection) Code(s): B20 - HUMAN IMMUNODEFICIENCY VIRUS [HIV] DISEASE (5) Bipolar II disorder Code(s): F31.81 - BIPOLAR II DISORDER Assessment/Plan Polysubstance abuse Possible Acute cholecystitis/ Hydrops GB - antiretroviral regimen incomplete - do not suggest restart Atazanavir by itself at this time, will need f/u as outpatient - cont. IV antibiotics for now - continue surgical f/u - f/u HIV viral load - monitor mental status d/w DISTANCE EDUCATION DIRECTOR
--- NOTE | 2017-07-10 19:02 | PN ---
Physical Exam: SUBJECTIVE: Patient seen and examined. She is sleeping, after being combative with the staff. She is having some pain after clears. OBJECTIVE: Vital Signs Period Temp Pulse Resp BP Sys/Wang Pulse Ox Last 24 Hr 98.5 F-100.5 F 78-101 16-20 97-128/54-78 97-99 PE Neuro: alert, awake, cn 2-12intact HEENT: poor dentition Pulm: CTAB CV: s1 s2 rrr no mrg Abd: mild RUQ tenderness Ext: warm, no edema Active Medications Generic Name Dose Route Start Last Admin Trade Name Freq PRN Reason Stop Dose Admin Albuterol/Ipratropium 1 amp 07/08/17 07:37 Duoneb - NEB Q6H PRN SHORTNESS OF BREATH Atazanavir 300 mg 07/10/17 10:00 07/10/17 10:20 Reyataz - PO 300 mg DAILY [facility] Administration Gabapentin 300 mg 07/09/17 22:00 07/10/17 14:05 Neurontin - PO 300 mg TID [facility] Administration Hydromorphone HCl 2 mg 07/07/17 19:13 07/09/17 12:00 Dilaudid Injection - IM 2 mg Q4H PRN Administration PAIN LEVEL 4 - 6 Piperacillin Sod/Tazobactam 100 mls @ 200 mls/hr 07/08/17 15:45 07/10/17 17: 22 Sod 4.5 gm/ Dextrose IVPB 200 mls/hr Q8H-IV [facility] Administration Protocol Sodium Chloride 1,000 mls @ 75 mls/hr 07/09/17 20:39 07/10/17 10:28 Normal Saline - IV 75 mls/hr [facility] Administration Lorazepam 1 mg 07/07/17 22:00 07/10/17 17:59 Ativan Injection - IVPUSH 1 mg QID [facility] Administration Ondansetron HCl 4 mg 07/07/17 22:00 07/10/17 17:22 Zofran Injection IVPB 4 mg QID [facility] Administration Quetiapine Fumarate 200 mg 07/10/17 10:00 07/10/17 10:21 Seroquel - PO 200 mg DAILY [facility] Administration Trazodone HCl 100 mg 07/09/17 22:00 07/09/17 21:53 Desyrel - PO 100 mg HS [facility] Administration Assessment: 51 year old female with a long history of alcohol, heroin, cocaine, and nicotine dependence, HIV+, bipolar, COPD, asthma, and neuropathy on bilateral lower extremities admitted from [facility] with abdominal pain, and vomiting Plan: 1. Acute Cholecystitis - Possibly hydrops of GB - Trial full liquids - May still need cholecystectomy - Zosyn per ID - Stop fluids, pt pulling out IV 2. Substance abuse, heroine - No signs of withdrawal - Continue ativan - Resume seroquel, trazadone 3. HIV - Stop Atazanavir, unclear if compliant and listed regimen is incomplete, d/w ID , pt needs outpt f/u w/ HIV clinic in [place] 4. DVT - SCDS Visit type - Emergency Visit Emergency Visit: Yes ED Registration Date: 07/07/17 Care time: The patient presented to the Emergency Department on the above date and was hospitalized for further evaluation of their emergent condition. - New Patient This patient is new to me today: No - Critical Care Critical Care patient: No
[2017-07-10] MEDS: traZODone HCL 50 MG TABLET (FP) PO SCH (21:15)
[2017-07-11] MEDS ORDERED: PT OWN MED DRAWER 7, Y5N ONE ×5 (01:30→21:49)
[2017-07-11] MEDS: PIPERACILLIN/TAZOB 4.5 GM 4.5 GM in DEXTROSE 5%-WATER - 100 ML IVPB SCH ×3 (01:31→17:19)
[2017-07-11] MEDS: SODIUM CHLORIDE 1,000 ML IV SCH (04:09)
[2017-07-11] MEDS: GABAPENTIN 300 MG CAPSULE (FP) PO SCH ×3 (05:42→23:13)
[2017-07-11 10:52] LABS: BASO % 0.4 % (0-2.0); EOS % 0.5 % (0-4.5); HEMATOCRIT 31.6 % (32.4-45.2); HEMOGLOBIN 10.3 GM/dL (10.7-15.3); LYMPH % 17.1 % (8-40); MCH 32.1 pg (25.7-33.7); MCHC 32.7 g/dl (32.0-36.0); MEAN PLT VOLUME 8.4 fl (7.5-11.1); MONO % 15.2 % (3.8-10.2); NEUT % 66.8 % (42.8-82.8); PLATELET COUNT 238 K/MM3 (134-434); RBC 3.22 M/mm3 (3.60-5.2); RDW 13.2 % (11.6-15.6); WHITE BLOOD COUNT 5.5 K/mm3 (4.0-10.0)
[2017-07-11 11:14] LABS: ALBUMIN 2.2 g/dl (3.4-5.0); ANION GAP 5 (8-16); BILIRUBIN,DIRECT 0.3 mg/dL (0.0-0.2); BLOOD UREA NITROGEN 6 mg/dL (7-18); CALCIUM 8.2 mg/dL (8.5-10.1); CHLORIDE 101 mmol/L (98-107); CO2 29 mmol/L (21-32); CREATININE 0.6 mg/dL (0.55-1.02); GLUCOSE,RANDOM 83 mg/dL (74-106); POTASSIUM 3.9 mmol/L (3.5-5.1); SGOT/AST 20 U/L (15-37); SGPT/ALT 24 U/L (12-78); SODIUM 135 mmol/L (136-145)
[2017-07-11 11:17] LABS: ALK PHOS 201 U/L (45-117); BILIRUBIN,TOTAL 1.3 mg/dL (0.2-1.0)
--- NOTE | 2017-07-11 11:32 | CONSULT ---
Consult Detox [facility] Reason for Current Admission/Consult: Detox consult - History History of Present Illness: [place] was admitted to [facility] for opiate detox but developed abdominal pain and vomiting, was determined to have acute cholecystitis. - History Source History Provided By: Patient, Medical Record, Caregiver - Alcohol/Substance Use Hx Alcohol Use: Yes Hx Substance Use: Yes Hx Substance Use Treatment: Yes - Past Medical History ...LMP: 05/20/16 ...: No Infectious Disease: Yes: HIV - Significant Medical Findings: MEDICALLY DETOX NOT INDICATED AT THIS TIME FU RE: REHAB SP STABILIZATION
[2017-07-11] MEDS: ATAZANAVIR SO4 150 MG CAPSULE PO SCH (12:13)
[2017-07-11] MEDS: QUEtiapine FUMARATE 200 MG TABLET PO SCH (12:14)
--- NOTE | 2017-07-11 12:34 | FALL ---
Fall Exam - Event Witnessed fall: No Location of Fall: Hallway Fall from: Wheel Chair - Pre-Fall Fall Risk: High Risk Mental Status: Uncooperative Current Medications: Current Medications Generic Name Dose Route Start Last Admin Trade Name Be PRN Reason Stop Dose Admin Albuterol/Ipratropium 1 amp 07/08/17 07:37 Duoneb - NEB Q6H PRN SHORTNESS OF BREATH Atazanavir 300 mg 07/10/17 10:00 07/11/17 12:13 Reyataz - PO 300 mg DAILY [facility] Administration Gabapentin 300 mg 07/09/17 22:00 07/11/17 05:42 Neurontin - PO Not Given TID [facility] Piperacillin Sod/Tazobactam 100 mls @ 200 mls/hr 07/08/17 15:45 07/11/17 09: 42 Sod 4.5 gm/ Dextrose IVPB 200 mls/hr Q8H-IV [facility] Administration Protocol Sodium Chloride 1,000 mls @ 75 mls/hr 07/09/17 20:39 07/11/17 04:09 Normal Saline - IV 75 mls/hr [facility] Administration Lorazepam 1 mg 07/07/17 22:00 07/10/17 21:15 Ativan Injection - IVPUSH 1 mg QID [facility] Administration Ondansetron HCl 4 mg 07/07/17 22:00 07/10/17 21:15 Zofran Injection IVPB 4 mg QID [facility] Administration Quetiapine Fumarate 200 mg 07/10/17 10:00 07/11/17 12:14 Seroquel - PO 200 mg DAILY [facility] Administration Trazodone HCl 100 mg 07/09/17 22:00 07/10/17 21:15 Desyrel - PO 100 mg HS [facility] Administration - Post-Fall Patient Outcome: No Injury Treatment: None Vital Signs: Vital Signs Temperature 100.2 F H 07/11/17 05:53 Pulse Rate 82 07/11/17 05:53 Respiratory Rate 20 07/11/17 05:53 Blood Pressure 117/76 07/11/17 05:53 O2 Sat by Pulse Oximetry (%) 97 07/10/17 21:00 LOC Post-Fall: Unchanged Identify factors for HIGH RISK for Head Injury: None of the above
[2017-07-11] MEDS ORDERED: TRIPLE LUMEN FLUSH 4 ML ML IVPUSH PRN (12:52)
--- NOTE | 2017-07-11 13:11 | PN ---
Physical Exam: SUBJECTIVE: Patient seen and examined. She is awake, she wants to eat, RN reported pain after full liquid diet. OBJECTIVE: Vital Signs Period Temp Pulse Resp BP Sys/Wang Pulse Ox Last 24 Hr 99.4 F-100.2 F 80-101 16-20 97-127/62-79 97-97 PE Neuro: alert, awake, cn 2-12intact HEENT: poor dentition, dry MM Pulm: CTAB CV: s1 s2 rrr no mrg Abd: mild RUQ tenderness Ext: warm, no edema Laboratory Results - last 24 hr 07/11/17 07/11/17 10:20 10:20 WBC 5.5 RBC 3.22 L Hgb 10.3 L Hct 31.6 L MCV 98.0 H MCH 32.1 MCHC 32.7 RDW 13.2 Plt Count 238 MPV 8.4 Neutrophils % 66.8 Lymphocytes % 17.1 Monocytes % 15.2 H Eosinophils % 0.5 D Basophils % 0.4 Sodium 135 L Potassium 3.9 Chloride 101 Carbon Dioxide 29 Anion Gap 5 L BUN 6 L Creatinine 0.6 Creat Clearance w eGFR > 60 Random Glucose 83 Calcium 8.2 L Total Bilirubin 1.3 H D Direct Bilirubin 0.3 H AST 20 ALT 24 Alkaline Phosphatase 201 H Total Protein 9.0 H Albumin 2.2 L Active Medications Generic Name Dose Route Start Last Admin Trade Name Freq PRN Reason Stop Dose Admin Albuterol/Ipratropium 1 amp 07/08/17 07:37 Duoneb - NEB Q6H PRN SHORTNESS OF BREATH Atazanavir 300 mg 07/10/17 10:00 07/11/17 12:13 Reyataz - PO 300 mg DAILY [facility] Administration Gabapentin 300 mg 07/09/17 22:00 07/11/17 05:42 Neurontin - PO Not Given TID [facility] IV Flush 4 ml 07/11/17 12:52 Triple Lumen Flush IVPUSH PRN PRN Protocol Piperacillin Sod/Tazobactam 100 mls @ 200 mls/hr 07/08/17 15:45 07/11/17 09: 42 Sod 4.5 gm/ Dextrose IVPB 200 mls/hr Q8H-IV [facility] Administration Protocol Sodium Chloride 1,000 mls @ 75 mls/hr 07/09/17 20:39 07/11/17 04:09 Normal Saline - IV 75 mls/hr ASDIR [facility] Administration Lorazepam 1 mg 07/07/17 22:00 07/10/17 21:15 Ativan Injection - IVPUSH 1 mg QID [facility] Administration Ondansetron HCl 4 mg 07/07/17 22:00 07/10/17 21:15 Zofran Injection IVPB 4 mg QID [facility] Administration Quetiapine Fumarate 200 mg 07/10/17 10:00 07/11/17 12:14 Seroquel - PO 200 mg DAILY [facility] Administration Trazodone HCl 100 mg 07/09/17 22:00 07/10/17 21:15 Desyrel - PO 100 mg HS [facility] Administration Assessment: 51 year old female with a long history of alcohol, heroin, cocaine, and nicotine dependence, HIV+, bipolar, COPD, asthma, and neuropathy on bilateral lower extremities admitted from [facility] with abdominal pain, and vomiting Plan: 1. Acute Cholecystitis vs hydrops of GB - Febrile this AM - Continued pain with eating - For percutaneous t tube in IR - Central line placement in IR - Zosyn per ID - D/w surgery 2. Substance abuse, heroine - Substance abuse consulted - Continue ativan - Seroquel, trazadone 3. HIV - Stop Atazanavir, unclear if compliant and listed regimen is incomplete, d/w ID , pt needs outpt f/u w/ HIV clinic in [place] 4. DVT - SCDS 5. Nutrition - NPO Visit type - Emergency Visit Emergency Visit: Yes ED Registration Date: 07/07/17 Care time: The patient presented to the Emergency Department on the above date and was hospitalized for further evaluation of their emergent condition. - New Patient This patient is new to me today: No - Critical Care Critical Care patient: No
[2017-07-11] MEDS: LORazepam 2 MG/ML SDV VIAL IVPUSH SCH ×4 (13:31→23:14)
[2017-07-11] MEDS: ONDANSETRON 4 MG/2 ML VIAL IVPB SCH ×4 (13:31→23:13)
--- NOTE | 2017-07-11 14:02 | PN ---
Progress Note, Physician History of Present Illness: stable pain main issues - Current Medication List Current Medications: Active Medications Albuterol/Ipratropium (Duoneb -) 1 amp NEB Q6H PRN PRN Reason: SHORTNESS OF BREATH Gabapentin (Neurontin -) 300 mg PO TID [facility] Last Admin: 07/11/17 05:42 Dose: Not Given IV Flush (Triple Lumen Flush) 4 ml IVPUSH PRN PRN PRN Reason: Protocol Piperacillin Sod/Tazobactam (Sod 4.5 gm/ Dextrose) 100 mls @ 200 mls/hr IVPB Q8H-IV [facility] PRN Reason: Protocol Last Admin: 07/11/17 09:42 Dose: 200 mls/hr Sodium Chloride (Normal Saline -) 1,000 mls @ 75 mls/hr IV ASDIR [facility] Last Admin: 07/11/17 04:09 Dose: 75 mls/hr Lorazepam (Ativan Injection -) 1 mg IVPUSH QID [facility] Last Admin: 07/11/17 13:32 Dose: Not Given Ondansetron HCl (Zofran Injection) 4 mg IVPB QID [facility] Last Admin: 07/11/17 13:32 Dose: Not Given Quetiapine Fumarate (Seroquel -) 200 mg PO DAILY [facility] Last Admin: 07/11/17 12:14 Dose: 200 mg Trazodone HCl (Desyrel -) 100 mg PO HS [facility] Last Admin: 07/10/17 21:15 Dose: 100 mg - Objective Vital Signs: Vital Signs Temperature 100.2 F H 07/11/17 05:53 Pulse Rate 84 07/11/17 09:00 Respiratory Rate 20 07/11/17 09:00 Blood Pressure 127/79 07/11/17 09:00 O2 Sat by Pulse Oximetry (%) 97 07/10/17 21:00 Constitutional: Yes: Calm, Mild Distress HENT: Yes: Other (poor oral hygeine) Cardiovascular: Yes: Regular Rate and Rhythm Respiratory: Yes: Regular, CTA Bilaterally Gastrointestinal: Yes: Normal Bowel Sounds, Soft Musculoskeletal: Yes: WNL Extremities: Yes: WNL Neurological: Yes: Alert, Oriented Psychiatric: Yes: Alert, Oriented Labs: CBC, BMP 07/11/17 10:20 07/11/17 10:20 INR, PTT INR 1.08 (0.82-1.09) 07/08/17 07:00 Assessment/Plan Problem List - Problems (1) Acute calculous cholecystitis Code(s): K80.00 - CALCULUS OF GALLBLADDER W ACUTE CHOLECYST W/O OBSTRUCTION (2) Alcohol abuse Code(s): F10.10 - ALCOHOL ABUSE, UNCOMPLICATED (3) COPD (chronic obstructive pulmonary disease) Code(s): J44.9 - CHRONIC OBSTRUCTIVE PULMONARY DISEASE, UNSPECIFIED Qualifiers: COPD type: emphysema Emphysema type: unspecified Qualified Code(s): J43.9 - Emphysema, unspecified (4) HIV (human immunodeficiency virus infection) Code(s): B20 - HUMAN IMMUNODEFICIENCY VIRUS [HIV] DISEASE (5) Bipolar II disorder Code(s): F31.81 - BIPOLAR II DISORDER plan continue abx await for final plan
--- NOTE | 2017-07-11 15:42 | PN ---
S Progress Note Note: full consult to follow [place] is in IR on arrival to floor, pt not seen She will resume Ativan IV once access established She is d6 admission, no longer in window for opiate detox, and 48 hours post ETOH/DT period Given poor po, would continue current Ativan regimen Detox no longer medically indicated Rehab possible once medically stable.
[2017-07-11] MEDS: traZODone HCL 50 MG TABLET (FP) PO SCH (23:13)
[2017-07-12] MEDS ORDERED: PT OWN MED DRAWER 7, Y5N ONE (01:42)
[2017-07-12] MEDS: SODIUM CHLORIDE 1,000 ML IV SCH ×2 (02:13→17:21)
[2017-07-12] MEDS: PIPERACILLIN/TAZOB 4.5 GM 4.5 GM in DEXTROSE 5%-WATER - 100 ML IVPB SCH ×3 (02:17→17:21)
[2017-07-12] MEDS: GABAPENTIN 300 MG CAPSULE (FP) PO SCH ×3 (06:49→21:47)
[2017-07-12 08:34] LABS: BASO % 0.4 % (0-2.0); EOS % 0.4 % (0-4.5); HEMATOCRIT 30.4 % (32.4-45.2); HEMOGLOBIN 10.2 GM/dL (10.7-15.3); LYMPH % 20.2 % (8-40); MCH 32.6 pg (25.7-33.7); MCHC 33.5 g/dl (32.0-36.0); MEAN CELL VOLUME 97.5 fl (80-96); MONO % 19.1 % (3.8-10.2); NEUT % 59.9 % (42.8-82.8); PLATELET COUNT 247 K/MM3 (134-434); RBC 3.12 M/mm3 (3.60-5.2); RDW 12.8 % (11.6-15.6); WHITE BLOOD COUNT 4.4 K/mm3 (4.0-10.0)
[2017-07-12 09:04] LABS: CHLORIDE 101 mmol/L (98-107); POTASSIUM 3.9 mmol/L (3.5-5.1); SODIUM 136 mmol/L (136-145)
[2017-07-12 09:33] LABS: ALBUMIN 2.2 g/dl (3.4-5.0); ALK PHOS 201 U/L (45-117); ANION GAP 8 (8-16); BILIRUBIN,TOTAL 1.8 mg/dL (0.2-1.0); BLOOD UREA NITROGEN 5 mg/dL (7-18); CALCIUM 8.8 mg/dL (8.5-10.1); CO2 27 mmol/L (21-32); CREATININE 0.6 mg/dL (0.55-1.02); GLUCOSE,RANDOM 94 mg/dL (74-106); SGOT/AST 21 U/L (15-37); SGPT/ALT 21 U/L (12-78); TOT PROT 9.2 g/dl (6.4-8.2)
[2017-07-12] MEDS: ONDANSETRON 4 MG/2 ML VIAL IVPB SCH ×3 (09:43→21:47)
[2017-07-12] MEDS: LORazepam 2 MG/ML SDV VIAL IVPUSH SCH (09:43)
[2017-07-12] MEDS: QUEtiapine FUMARATE 200 MG TABLET PO SCH (09:45)
[2017-07-12] MEDS ORDERED: LORazepam 0.5 MG TABLET PO PRN (12:02)
--- NOTE | 2017-07-12 12:30 | PN ---
Progress Note (short form) - Note Progress Note: Underwent percutaneous cholecystostomy yesterday with findings of purulent drainage Feels hungry and pain over pucture site Afebrile, VSS Abd: flat, + tenderness over C-tube site, no tenderness over the rest of the abdomen WBC= 4K TB= 1.8 ALP = 201 A: empyema of the gb with clinical improvement post perc. C-tube placement P: resume diet keep C-tube x 6 weeks followed by interval cholecystectomy OK for D/C planning F/U at the office in 2 weeks Problem List - Problems (1) Acute calculous cholecystitis Code(s): K80.00 - CALCULUS OF GALLBLADDER W ACUTE CHOLECYST W/O OBSTRUCTION
--- NOTE | 2017-07-12 14:04 | PN ---
Progress Note, Physician History of Present Illness: stable post t tube placement still with pain - Current Medication List Current Medications: Active Medications Albuterol/Ipratropium (Duoneb -) 1 amp NEB Q6H PRN PRN Reason: SHORTNESS OF BREATH Gabapentin (Neurontin -) 300 mg PO TID [facility] Last Admin: 07/12/17 06:49 Dose: Not Given IV Flush (Triple Lumen Flush) 4 ml IVPUSH PRN PRN PRN Reason: Protocol Piperacillin Sod/Tazobactam (Sod 4.5 gm/ Dextrose) 100 mls @ 200 mls/hr IVPB Q8H-IV [facility] PRN Reason: Protocol Last Admin: 07/12/17 02:17 Dose: 200 mls/hr Sodium Chloride (Normal Saline -) 1,000 mls @ 75 mls/hr IV ASDIR [facility] Last Admin: 07/12/17 02:13 Dose: 75 mls/hr Lorazepam (Ativan -) 0.5 mg PO TID PRN PRN Reason: ANXIETY Ondansetron HCl (Zofran Injection) 4 mg IVPB QID [facility] Last Admin: 07/12/17 09:43 Dose: 4 mg Quetiapine Fumarate (Seroquel -) 200 mg PO DAILY [facility] Last Admin: 07/12/17 09:45 Dose: 200 mg Trazodone HCl (Desyrel -) 100 mg PO HS [facility] Last Admin: 07/11/17 23:13 Dose: 100 mg - Objective Vital Signs: Vital Signs Temperature 98.2 F 07/12/17 10:00 Pulse Rate 85 07/12/17 10:00 Respiratory Rate 16 07/12/17 10:00 Blood Pressure 138/68 07/12/17 10:00 O2 Sat by Pulse Oximetry (%) 100 07/11/17 21:00 Constitutional: Yes: Calm HENT: Yes: Atraumatic, Other (poor oral hygeine) Cardiovascular: Yes: Regular Rate and Rhythm Respiratory: Yes: Regular, CTA Bilaterally Gastrointestinal: Yes: Normal Bowel Sounds, Soft, Other ( ttube in place) Extremities: Yes: WNL Labs: CBC, BMP 07/12/17 07:00 07/12/17 07:00 INR, PTT INR 1.08 (0.82-1.09) 07/08/17 07:00 Assessment/Plan Problem List - Problems (1) Acute calculous cholecystitis Code(s): K80.00 - CALCULUS OF GALLBLADDER W ACUTE CHOLECYST W/O OBSTRUCTION (2) Alcohol abuse Code(s): F10.10 - ALCOHOL ABUSE, UNCOMPLICATED (3) COPD (chronic obstructive pulmonary disease) Code(s): J44.9 - CHRONIC OBSTRUCTIVE PULMONARY DISEASE, UNSPECIFIED Qualifiers: COPD type: emphysema Emphysema type: unspecified Qualified Code(s): J43.9 - Emphysema, unspecified (4) HIV (human immunodeficiency virus infection) Code(s): B20 - HUMAN IMMUNODEFICIENCY VIRUS [HIV] DISEASE (5) Bipolar II disorder Code(s): F31.81 - BIPOLAR II DISORDER plan continue abx await for final plan if patient remains stable will switch to oral abx
[2017-07-12 14:39] LABS: BILIRUBIN,DIRECT 0.4 mg/dL (0.0-0.2)
[2017-07-12] MEDS ORDERED: LORazepam 2 MG/ML SDV VIAL IVPUSH ONE (18:45)
--- NOTE | 2017-07-12 20:50 | PN ---
Physical Exam: SUBJECTIVE: Patient seen and examined at bedside. Per staff, has periods of agitation, biting and hitting. OBJECTIVE: Vital Signs Period Temp Pulse Resp BP Sys/Wang Pulse Ox Last 24 Hr 98.2 F-99.3 F 76-99 14-18 102-138/68-86 100 GENERAL: The patient is awake, alert. Unkempt. Appears overly sedated but simultaneously restless and mildly agitated. In wanda vest. HEAD: Edentulous. LUNGS: CTA HEART: Regular rate and rhythm, S1, S2 ABDOMEN: Soft, diffusely tender, normoactive bowel sounds; perc drain with minimal serosanguinous fluid EXTREMITIES: 2+ pulses, warm, well-perfused, no edema. NEUROLOGICAL: Cranial nerves II through XII grossly intact. Normal speech, gait not observed. Laboratory Results - last 24 hr 07/08/17 07/12/17 07/12/17 07:00 07:00 07:00 WBC 4.4 RBC 3.12 L Hgb 10.2 L Hct 30.4 L MCV 97.5 H MCH 32.6 MCHC 33.5 RDW 12.8 Plt Count 247 MPV 9.0 Neutrophils % 59.9 Lymphocytes % 20.2 Monocytes % 19.1 H Eosinophils % 0.4 Basophils % 0.4 Sodium 136 Potassium 3.9 Chloride 101 Carbon Dioxide 27 Anion Gap 8 BUN 5 L Creatinine 0.6 Creat Clearance w eGFR > 60 Random Glucose 94 Calcium 8.8 Total Bilirubin 1.8 H D Direct Bilirubin 0.4 H AST 21 ALT 21 Alkaline Phosphatase 201 H Total Protein 9.2 H Albumin 2.2 L HIV-1 RNA Quant 01281 HIV-1 RNA (PCR) log10 4.677 Active Medications Generic Name Dose Route Start Last Admin Trade Name Freq PRN Reason Stop Dose Admin Albuterol/Ipratropium 1 amp 07/08/17 07:37 Duoneb - NEB Q6H PRN SHORTNESS OF BREATH Gabapentin 300 mg 07/09/17 22:00 07/12/17 15:02 Neurontin - PO 300 mg TID [facility] Administration IV Flush 4 ml 07/11/17 12:52 Triple Lumen Flush IVPUSH PRN PRN Protocol Piperacillin Sod/Tazobactam 100 mls @ 200 mls/hr 07/08/17 15:45 07/12/17 17: 21 Sod 4.5 gm/ Dextrose IVPB 200 mls/hr Q8H-IV [facility] Administration Protocol Sodium Chloride 1,000 mls @ 75 mls/hr 07/09/17 20:39 07/12/17 17:21 Normal Saline - IV 75 mls/hr ASDIR [facility] Administration Lorazepam 1 mg 07/12/17 18:36 Ativan - PO Q8H PRN ANXIETY Ondansetron HCl 4 mg 07/07/17 22:00 07/12/17 17:21 Zofran Injection IVPB 4 mg QID [facility] Administration Quetiapine Fumarate 200 mg 07/10/17 10:00 07/12/17 09:45 Seroquel - PO 200 mg DAILY [facility] Administration Trazodone HCl 100 mg 07/09/17 22:00 07/11/17 23:13 Desyrel - PO 100 mg HS [facility] Administration Imaging 07/07 CTAP: distended gallbladder with cholelithiasis and wall thickening; no CBD dilitation 07/07 US: large, nonmobile gallstone 3.3cm; normal size CBD 07/08 HIDA: no filling consistent with cystic duct obstruction and acute cholecystitis ASSESSMENT/PLAN: 51 year-old female with a long history of alcohol, heroin, cocaine, and nicotine dependence, HIV+, bipolar, COPD, asthma, and bilateral lower extremity neuropathy admitted for acute cholecystitis. Acute cholecystitis --s/p percutaneous cholesystostomy with grossly purulent drainage 07/11 --afebrile, no leukocytosis --continue Zosyn (day #5) --central line access 07/11 --discussed with Dr. Hodgson; patient poor surgical candidate at this time due to co-morbidities; needs to be medically optimized prior to surgery; plan is to keep perc drain in place for 6 weeks Polysubstance abuse --[facility] screening on 07/05 positive for cocaine, opiates, methadone, tricyclic antidepressants --per Dr. Quintanilla, past window for opiate detox as well as ETOH/DT period --decreased ativan today for oversedation --change seroquel dosing to 150mg BID; continue trazadone qhs HIV --stop Atazanavir, unclear if compliant and listed regimen is incomplete --need to verify meds at HIV clinic in [place] FEN Fluids: NS @ 75mL/hr Electrolytes: replete as indicated Nutrition: full liquids; nutrition consult DVT prophylaxis: subq heparin Dispo: continues to require inpatient care. Full code. Visit type - Emergency Visit Emergency Visit: Yes ED Registration Date: 07/07/17 Care time: The patient presented to the Emergency Department on the above date and was hospitalized for further evaluation of their emergent condition. - New Patient This patient is new to me today: Yes Date on this admission: 07/13/17 - Critical Care Critical Care patient: No
[2017-07-12] MEDS: traZODone HCL 50 MG TABLET (FP) PO SCH (21:47)
[2017-07-12] MEDS: LORazepam 1 MG TABLET PO PRN (22:21)
[2017-07-13] MEDS: PIPERACILLIN/TAZOB 4.5 GM 4.5 GM in DEXTROSE 5%-WATER - 100 ML IVPB SCH ×3 (01:05→18:30)
[2017-07-13] MEDS: LORazepam 1 MG TABLET PO PRN (06:17)
[2017-07-13] MEDS: GABAPENTIN 300 MG CAPSULE (FP) PO SCH ×2 (06:17→15:17)
[2017-07-13 08:06] LABS: BASO % 0.2 % (0-2.0); EOS % 2.9 % (0-4.5); HEMATOCRIT 31.4 % (32.4-45.2); HEMOGLOBIN 10.3 GM/dL (10.7-15.3); LYMPH % 39.8 % (8-40); MCH 32.4 pg (25.7-33.7); MCHC 32.9 g/dl (32.0-36.0); MEAN CELL VOLUME 98.4 fl (80-96); MEAN PLT VOLUME 8.6 fl (7.5-11.1); MONO % 18.5 % (3.8-10.2); NEUT % 38.6 % (42.8-82.8); PLATELET COUNT 268 K/MM3 (134-434); RBC 3.19 M/mm3 (3.60-5.2); RDW 12.8 % (11.6-15.6); WHITE BLOOD COUNT 3.3 K/mm3 (4.0-10.0)
[2017-07-13 08:50] LABS: ALBUMIN 2.2 g/dl (3.4-5.0); ANION GAP 6 (8-16); BILIRUBIN,DIRECT 0.2 mg/dL (0.0-0.2); BILIRUBIN,TOTAL 0.6 mg/dL (0.2-1.0); BLOOD UREA NITROGEN 9 mg/dL (7-18); CALCIUM 8.5 mg/dL (8.5-10.1); CHLORIDE 101 mmol/L (98-107); CO2 28 mmol/L (21-32); CREATININE 0.7 mg/dL (0.55-1.02); GLUCOSE,RANDOM 88 mg/dL (74-106); MAGNESIUM 1.6 mg/dL (1.8-2.4); PHOSPHOROUS 3.8 mg/dL (2.5-4.9); POTASSIUM 4.3 mmol/L (3.5-5.1); SGOT/AST 18 U/L (15-37); SGPT/ALT 19 U/L (12-78); SODIUM 135 mmol/L (136-145); TOT PROT 9.4 g/dl (6.4-8.2)
[2017-07-13 08:51] LABS: ALK PHOS 182 U/L (45-117)
[2017-07-13] MEDS: ONDANSETRON 4 MG/2 ML VIAL IVPB SCH ×2 (09:45→13:38)
[2017-07-13] MEDS: SODIUM CHLORIDE 1,000 ML IV SCH (09:46)
[2017-07-13] MEDS ORDERED: PT OWN MED DRAWER 7, Y5N ONE (09:57)
[2017-07-13] MEDS ORDERED: QUEtiapine FUMARATE 200 MG TABLET PO SCH (10:00)
[2017-07-13] MEDS ORDERED: QUETIAPINE FUMARATE 100 MG, QUETIAPINE FUMARATE 50 MG PO SCH (10:00)
[2017-07-13] MEDS ORDERED: ACETAMINOPHEN 325 MG TABLET (FP) PO PRN (10:23)
--- NOTE | 2017-07-13 10:23 | EKG ---
Test Reason : Blood Pressure : / mmHG Vent. Rate : 074 BPM Atrial Rate : 074 BPM P-R Int : 118 ms QRS Dur : 096 ms QT Int : 402 ms P-R-T Axes : 007 069 049 degrees QTc Int : 446 ms NORMAL SINUS RHYTHM NORMAL ECG WHEN COMPARED WITH ECG OF 05-JUL-2017 20:43, NONSPECIFIC T WAVE ABNORMALITY NOW EVIDENT IN INFERIOR LEADS Confirmed by MEGAN CONROY, JEREMY ([id number]) on 07/13/2017 10:23:35 AM Referred By: Fabian SIMPSON Confirmed By:JEREMY GUZMAN MD
[2017-07-13] MEDS ORDERED: traMADol HCL 50 MG TABLET PO PRN (11:04)
[2017-07-13] MEDS ORDERED: HEPARIN NA (PORCINE) 5,000 UNITS/ML 1ML VIAL SQ SCH (14:00)
--- NOTE | 2017-07-13 15:21 | PN ---
Progress Note, Physician History of Present Illness: patient wants to go home says she is feeling much better sitting in chair - Current Medication List Current Medications: Active Medications Acetaminophen (Tylenol -) 650 mg PO Q6H PRN PRN Reason: PAIN Gabapentin (Neurontin -) 300 mg PO TID [facility] Last Admin: 07/13/17 15:17 Dose: Not Given Heparin Sodium (Porcine) (Heparin -) 5,000 unit SQ TID [facility] Last Admin: 07/13/17 15:17 Dose: Not Given IV Flush (Triple Lumen Flush) 4 ml IVPUSH PRN PRN PRN Reason: Protocol Last Admin: 07/13/17 09:46 Dose: 4 ml Piperacillin Sod/Tazobactam (Sod 4.5 gm/ Dextrose) 100 mls @ 200 mls/hr IVPB Q8H-IV [facility] PRN Reason: Protocol Last Admin: 07/13/17 09:47 Dose: 200 mls/hr Lorazepam (Ativan -) 1 mg PO Q8H PRN PRN Reason: ANXIETY Last Admin: 07/13/17 06:17 Dose: 1 mg Quetiapine Fumarate 100 mg/ (Quetiapine Fumarate 50 mg) 150 mg PO BID [facility] Last Admin: 07/13/17 09:52 Dose: 150 mg Tramadol HCl (Ultram -) 50 mg PO Q6H PRN PRN Reason: PAIN LEVEL 6-10 Last Admin: 07/13/17 12:22 Dose: 50 mg Trazodone HCl (Desyrel -) 100 mg PO HS [facility] Last Admin: 07/12/17 21:47 Dose: 100 mg - Objective Vital Signs: Vital Signs Temperature 98.8 F 07/13/17 09:00 Pulse Rate 75 07/13/17 09:00 Respiratory Rate 18 07/13/17 09:00 Blood Pressure 115/74 07/13/17 09:00 O2 Sat by Pulse Oximetry (%) 100 07/12/17 21:00 Constitutional: Yes: No Distress, Calm Cardiovascular: Yes: Regular Rate and Rhythm Respiratory: Yes: Regular, CTA Bilaterally Gastrointestinal: Yes: Normal Bowel Sounds, Soft, Other (drain in place) Musculoskeletal: Yes: WNL Extremities: Yes: WNL Neurological: Yes: Alert, Oriented Psychiatric: Yes: Alert, Oriented Labs: CBC, BMP 07/13/17 06:00 07/13/17 06:00 INR, PTT INR 1.08 (0.82-1.09) 07/08/17 07:00 Assessment/Plan Problem List - Problems (1) Acute calculous cholecystitis Code(s): K80.00 - CALCULUS OF GALLBLADDER W ACUTE CHOLECYST W/O OBSTRUCTION (2) Alcohol abuse Code(s): F10.10 - ALCOHOL ABUSE, UNCOMPLICATED (3) COPD (chronic obstructive pulmonary disease) Code(s): J44.9 - CHRONIC OBSTRUCTIVE PULMONARY DISEASE, UNSPECIFIED Qualifiers: COPD type: emphysema Emphysema type: unspecified Qualified Code(s): J43.9 - Emphysema, unspecified (4) HIV (human immunodeficiency virus infection) Code(s): B20 - HUMAN IMMUNODEFICIENCY VIRUS [HIV] DISEASE (5) Bipolar II disorder Code(s): F31.81 - BIPOLAR II DISORDER plan switch to oral augmentin 875 mg bid rest continue current mgmt final plan rest as per primary team
[2017-07-13 15:25] VITALS: BP 96/71; PULSE 81; TEMP 99.1
--- NOTE | 2017-07-13 17:19 | CON.PSY ---
Psychiatry Consult Chief Complaint: I have to go home to take care of my daughter bryan. I will come back tomorrow. - Previous Psychiatric Treatment Outpatient: None Inpatient: None - Previous Substance Abuse Treatment Inpatient: None - Reason for Previous Treatment Reason for Previous Treatment: Alcohol Abuse, Heroin or Other Narcotics - Current Medications Current Medications: Active Medications Acetaminophen (Tylenol -) 650 mg PO Q6H PRN PRN Reason: PAIN Gabapentin (Neurontin -) 300 mg PO TID [facility] Last Admin: 07/13/17 15:17 Dose: Not Given Heparin Sodium (Porcine) (Heparin -) 5,000 unit SQ TID [facility] Last Admin: 07/13/17 15:17 Dose: Not Given IV Flush (Triple Lumen Flush) 4 ml IVPUSH PRN PRN PRN Reason: Protocol Last Admin: 07/13/17 09:46 Dose: 4 ml Piperacillin Sod/Tazobactam (Sod 4.5 gm/ Dextrose) 100 mls @ 200 mls/hr IVPB Q8H-IV [facility] PRN Reason: Protocol Last Admin: 07/13/17 09:47 Dose: 200 mls/hr Lorazepam (Ativan -) 1 mg PO Q8H PRN PRN Reason: ANXIETY Last Admin: 07/13/17 06:17 Dose: 1 mg Quetiapine Fumarate 100 mg/ (Quetiapine Fumarate 50 mg) 150 mg PO BID [facility] Last Admin: 07/13/17 09:52 Dose: 150 mg Tramadol HCl (Ultram -) 50 mg PO Q6H PRN PRN Reason: PAIN LEVEL 6-10 Last Admin: 07/13/17 12:22 Dose: 50 mg Trazodone HCl (Desyrel -) 100 mg PO [facility] Last Admin: 07/12/17 21:47 Dose: 100 mg - Allergies Allergies: Allergies Allergy/AdvReac Type Severity Reaction Status Date / Time No Known Allergies Allergy Verified 07/06/17 22:12 - Current Living Status Usual Living Arrangement: Alone - Current Mental Status Evaluation Appearance: Disheveled Attitude: Cooperative - Affect Affect: Full Range Appropriateness: Appropriate to Content - Mood Mood: Euthymic - Speech/Language Expressive: Coherent - Psychomotor Activity Psychomotor Activity: Normal - Thought Process Thought Process: Intact - Thought Content Hallucinations: Absent Delusions: Absent - Self Perception Self Perception: No Impairment - Cognition Attention: Alert Orientation: Time Memory, Immediate Recall: Intact Memory, Short Term: 2/3 Memory, Remote with Promptin/3 - Concentration Serial Sevens Intact: No Simple Calculations Intact: No - Abstraction Judgement: Intact - Insight Insight: Intact - Impulse Control Impulse Control: Minimally Impaired - Suicidal Ideation Suicidal Ideation: No - Homicidal Ideation Homicidal Ideation: No Assessment/Plan 1) Patient understands the risk of leaving AMA at this time. she denies any suicidal ideas or plans. No history of any Psychiatric Illness or previous Suicidal [id number]. 2) Patient has the mental capacity to sign out AMA.
== END 2017-07-13 20:35 | disposition left against medical advice (07) ==
LOC: JER 21:39 → JERBED 07-07 13:10 → OBSVTOIN 07-07 13:14 → J6S 07-07 18:35
PROVIDERS: ADMIT Hospitalist; ATTEND Nurse Practitioner Acute Care
PROC: HZ2ZZZZ Detoxification Services for Substance Abuse Treatment (ICD-10-PCS; 2017-07-08)
PROC: 0F9440Z Drainage of Gallbladder with Drainage Device, Percutaneous Endoscopic Approach (ICD-10-PCS; principal; 2017-07-12)
PROC: 05HM33Z Insertion of Infusion Device into Right Internal Jugular Vein, Percutaneous Approach (ICD-10-PCS; 2017-07-12)
PROC: B513ZZA Fluoroscopy of Right Jugular Veins, Guidance (ICD-10-PCS; 2017-07-12)
PROC: B543ZZA Ultrasonography of Right Jugular Veins, Guidance (ICD-10-PCS; 2017-07-12)
DX: K80.01 Calculus of gallbladder with acute cholecystitis with obstruction (principal); J43.9 Emphysema, unspecified; R16.0 Hepatomegaly, not elsewhere classified; G62.9 Polyneuropathy, unspecified; F14.20 Cocaine dependence, uncomplicated; F11.20 Opioid dependence, uncomplicated; Z21 Asymptomatic human immunodeficiency virus [HIV] infection status; F17.210 Nicotine dependence, cigarettes, uncomplicated; F10.20 Alcohol dependence, uncomplicated; F31.9 Bipolar disorder, unspecified; R45.1 Restlessness and agitation
CPT/HCPCS: 36415; 36556; 47490; 70450-TC; 71045-TC; 74176-TC; 76098-TC; 76705-TC; 77001-TC; 78226-TC; 80048; 80053; 80076; 80307; 81003; 82248; 82962; 83605; 83690; 83735; 84100; 84484; 84702; 85025; 85027; 85610; 85730; 86359; 86360; 86850; 86900; 86901; 87040; 87070; 87075; 87186; 87205; 87804; 87899; 93005; 93010; 99284-25; A9537; C1729; C1751; G0378